=== PATIENT | female | born 1935 | race Two or more races ===

== ENCOUNTER 2016-05-30 02:00 | Emergency (ER) | payer MEDICARE, MEDICAID ==
[~2016-05-30] VITALS: Ht 149.9 cm; Wt 63.5 kg
[~2016-05-30 02:00] MED LIST: AMLO1TAB32 PO; DICL-388 PO; FERR325E14 PO; OMEP40EC1 PO
[2016-05-30 02:05] VITALS: BP 125/57
[2016-05-30] MEDS ORDERED: CLOP75TA55 PO (02:33)
[2016-05-30] MEDS ORDERED: CARV3.12 PO (02:33)
[2016-05-30] MEDS ORDERED: ATOR20TA PO (02:33)
[2016-05-30] MEDS ORDERED: FAMO-90 PO (02:33)
--- NOTE | 2016-05-30 02:35 | NUR ---
PT TAKEN TO BED 4
--- NOTE | 2016-05-30 02:44 | NUR ---
PATIENT PRESENTS TO ED WITH BL ANKLE SWELLING . PT FAMILY STATES SHE WAS RECENTLY DIAGNOSED WITH A. FIB AND CHF X3DAYS AGO AT [facility] . DENIES N/V/D; SKIN IS PINK/WARM/DRY; AAOX4 WITH EVEN AND STEADY GAIT; LUNGS CLEAR BL; HR EVEN AND REGULAR; PT DENIES ANY FEVER, CP, SOB, OR COUGH AT THIS TIME; PATIENT STATES PAIN OF 0/10 AT THIS TIME; VSS; PATIENT POSITIONED FOR COMFORT; HOB ELEVATED; BEDRAILS UP X2; BED DOWN. ER MD MADE AWARE OF PT STATUS. FAMILY AT BEDSIDE
[2016-05-30 03:31] LABS: BASOPHILS # (AUTO) 0.1 K/uL (0.00-0.22); BASOPHILS % (AUTO) 0.8 % (0.0-2.0); EOSINOPHILS # (AUTO) 0.7 K/uL (0-0.4); EOSINOPHILS % (AUTO) 5.9 % (0.0-4.0); HEMATOCRIT 30.5 % (36-48); HEMOGLOBIN 9.5 g/dL (12.0-16.0); LYMPHOCYTES # (AUTO) 1.4 K/uL (2.5-16.5); MEAN CORPUSCULAR HEMOGLOBIN 25 pg (27-31); MEAN CORPUSCULAR HGB CONC 31 g/dL (33-37); MEAN CORPUSCULAR VOLUME 80 fL (80-94); MONOCYTES # (AUTO) 0.8 K/uL (0.8-1.0); MONOCYTES % (AUTO) 6.4 % (1.7-9.3); NEUTROPHILS # (AUTO) 8.9 K/uL (1.8-7.7); NEUTROPHILS % (AUTO) 74.9 % (42.2-75.2); PLATELET COUNT (AUTO) 544 K/uL (140-450); RED BLOOD CELL COUNT(AUTO) 3.83 MIL/uL (4.20-5.40); RED CELL DISTRIBUTION WIDTH 18.2 % (11.6-13.7); WHITE BLOOD COUNT (AUTO) 11.9 K/uL (4.8-10.8)
[2016-05-30 03:40] LABS: ANION GAP 9.5 (8-16); CALCIUM 8.7 mg/dL (8.5-10.1); CHLORIDE 103 mmol/L (98-107); CREATININE 1.1 mg/dL (0.6-1.3); GLUCOSE 90 mg/dL (74-106); POTASSIUM 3.5 mmol/L (3.5-5.1); SODIUM SERUM 137 mmol/L (136-145); UREA NITROGEN, BLOOD 28 mg/dL (7-18)
[2016-05-30 03:46] LABS: ALANINE AMINOTRANSFERASE 25 U/L (12-78); ALBUMIN 2.3 g/dL (3.4-5.0); ALKALINE PHOSPHATASE 63 U/L (46-116); ASPARTATE AMINOTRANSFERASE 18 U/L (15-37); TOTAL BILIRUBIN 0.4 mg/dL (0.0-1.0); TOTAL PROTEIN, SERUM 6.6 g/dL (6.4-8.2)
[2016-05-30 03:54] LABS: CREATINE KINASE MB 0.9 ng/mL (0-3.6)
[2016-05-30 03:55] LABS: INR 1.2 (0.8-1.2)
[2016-05-30] MEDS ORDERED: diphenhydrAMINE 50 MG/ML VIAL IVP ONE (04:05)
--- NOTE | 2016-05-30 04:05 | NUR ---
Pt report given to MCKENZIE BRUNER. Transfer of care at this time.
--- NOTE | 2016-05-30 04:10 | NUR ---
X-Ray at bedside.
--- NOTE | 2016-05-30 04:32 | NUR ---
Ultrasound at bedside.
[2016-05-30 05:24] VITALS: BP 117/68
--- NOTE | 2016-05-30 05:25 | NUR ---
Patient discharged with v/s stable. Written and verbal after care instructions given and explained TO PROCESSING OPERATOR. Patient alert, oriented and verbalized understanding of instructions. Wheel Chair Assisted with by caregiver. All questions addressed prior to discharge. ID band removed. Patient advised to follow up with PMD OR RETURN TO ER IF CONDITION WORSENS. Rx of DIPHENHYDRAMINE given. Patient educated on indication of medication including possible reaction and side effects. Opportunity to ask questions provided and answered.
== END 2016-05-30 05:25 | disposition home or self-care (01) ==
LOC: MED 02:00
DX: R60.0 Localized edema (principal); I10 Essential (primary) hypertension; Z79.899 Other long term (current) drug therapy
CPT/HCPCS: 36415; 71010; 80053; 82550; 82553; 83880; 84484; 85025; 85610; 85730; 93005; 93925; 93970; 96374; 99285; J1200; Q0092

== ENCOUNTER 2017-11-02 17:39 | Inpatient (IN) | payer MEDICAID, MEDICARE ==
[~2017-11-02] VITALS: Ht 157.5 cm; Wt 88.0 kg
[~2017-11-02 17:39] MED LIST changes: +APIX2.5 PO; +ATOR20TA PO; +CARV3.12 PO; +CLIN300C2 PO; +CLOP75TA55 PO; +FAMO-90 PO; +FURO-570 PO; +GUAI-791 PO; +LACT10CA PO; +LEVO0.124 PO; +LEVO500T98 PO; +[UNRECOGNIZED DRUG - CODE] PO
[2017-11-02 17:40] VITALS: BP 140/75
--- NOTE | 2017-11-02 17:45 | NUR ---
82 YEARS OLD BIBA after family called 911 for patient in respiratory distress. gcs 10. Per son, the durable power of personal injury attorney, the hospice nurse administered the morphine and ativan from the comfort kit and the patient desatted. Per ems report, pt o2 sat 60% on scene with cyanotic face. per report pt purse-lipped breathing, rapid, shallow breaths, absent lung sounds bilateral lower lobes with audible rhonchi to bilateral upper lobes. Per report pt hot to the touch, PERRLA intact. Tachy 110 in the field. 20g L AC established in the field. pt satting 100% being manually bagged. hx end-stage CHF. PT EYES OPEN, NONVERBAL, UNABLE TO FOLLOW COMMANDS, LACERATION ON LEFT FACE AND 4 STICHES TO LEFT ELBOW NOTED, PT HAD A FALL RECENTLY PER FAMILY, A-FIB ON PIANO MAKER, SHALOWED BREATHING, DISMINISHED LUNG SOUNDS LINDSEY. NO FEVER, NO COUGHING, INCONTINENT WITH B&B'S, GENERALIZED WEAKNESS TO ALL EXTREMITIES. FLACC 0; VSS; PATIENT POSITIONED FOR COMFORT; HOB ELEVATED; BEDRAILS UP X2; BED DOWN. ER MD MADE AWARE OF PT STATUS.
--- NOTE | 2017-11-02 17:50 | NUR ---
Patient being evaluated by physician at bedside.
[2017-11-02] MEDS ORDERED: cefTRIAXone 1,000 MG VIAL ONE ×2 (18:59→20:12)
[2017-11-02 19:04] LABS: BASOPHILS # (AUTO) 0.1 K/uL (0.00-0.22); BASOPHILS % (AUTO) 0.6 % (0.0-2.0); EOSINOPHILS # (AUTO) 0.2 K/uL (0-0.4); EOSINOPHILS % (AUTO) 1.6 % (0.0-4.0); HEMATOCRIT 31.8 % (36-48); HEMOGLOBIN 9.6 g/dL (12.0-16.0); LYMPHOCYTES # (AUTO) 0.7 K/uL (2.5-16.5); LYMPHOCYTES % (AUTO) 5.2 % (20.5-51.1); MEAN CORPUSCULAR HEMOGLOBIN 23 pg (27-31); MEAN CORPUSCULAR HGB CONC 30 g/dL (33-37); MEAN CORPUSCULAR VOLUME 76.2 fL (80-94); MONOCYTES # (AUTO) 0.9 K/uL (0.8-1.0); MONOCYTES % (AUTO) 6.6 % (1.7-9.3); NEUTROPHILS # (AUTO) 11.7 K/uL (1.8-7.7); PLATELET COUNT (AUTO) 273 K/uL (140-450); RED BLOOD CELL COUNT(AUTO) 4.17 MIL/uL (4.20-5.40); RED CELL DISTRIBUTION WIDTH 18.5 % (11.6-13.7); WHITE BLOOD COUNT (AUTO) 13.6 K/uL (4.8-10.8)
[2017-11-02 19:14] LABS: CHLORIDE 108 mmol/L (98-107); CREATININE 1.1 mg/dL (0.6-1.3); GLUCOSE 236 mg/dL (74-106); SODIUM SERUM 140 mmol/L (136-145); UREA NITROGEN, BLOOD 19 mg/dL (7-18)
--- NOTE | 2017-11-02 19:15 | NUR ---
PT RESTING IN BED, VITALS STABLE. FAMILY AT BEDSIDE.
--- NOTE | 2017-11-02 19:23 | NUR ---
REPORT GIVEN TO UNIT ASSEMBLER NURSE FOR CONTINUE OF CARE.
[2017-11-02 19:29] LABS: ASPARTATE AMINOTRANSFERASE 31 U/L (15-37); TOTAL BILIRUBIN 0.4 mg/dL (0.0-1.0)
[2017-11-02 19:32] LABS: APPEARANCE,URINE SL CLOUDY (CLEAR); BILIRUBIN,URINE NEGATIVE (NEGATIVE); BLOOD, URINE 3+ (NEGATIVE); COLOR,URINE YELLOW (YELLOW); LEUKOCYTE ESTERASE ,URINE NEGATIVE (NEGATIVE); NITRITE, URINE NEGATIVE (NEGATIVE); UGLUCOSE 1+ (NEGATIVE)
--- NOTE | 2017-11-02 19:42 | NUR ---
Dr. Saldana evaluating patient at bedside.
[2017-11-02 19:44] LABS: RBC,URINE 20-50 /HPF (0-5)
[2017-11-02 19:45] LABS: COARSE GRANULAR CASTS,URINE 0-10 /LPF (None Seen)
[2017-11-02] MEDS ORDERED: AZITHROMYCIN 500 MG in DEXTROSE 5% 250 ML IV ONE (19:50)
--- NOTE | 2017-11-02 20:02 | NUR ---
Dr. Ghotra evaluating patient at bedside.
--- NOTE | 2017-11-02 20:05 | NUR ---
pt vitals stable, family at bedside, waiting admit
[2017-11-02] MEDS ORDERED: AZITHROMYCIN 500 MG INJ VIAL IV ONE (20:13)
[2017-11-02] MEDS ORDERED: ACETAMINOPHEN 325 MG TAB PO PRN (20:25)
[2017-11-02] MEDS ORDERED: HYDROcodone/APAP 7.5/325 MG 1 TAB PO PRN (20:25)
[2017-11-02] MEDS ORDERED: ONDANSETRON 4 MG/2 ML VIAL IVP PRN (20:25)
[2017-11-02] MEDS ORDERED: ALBUTEROL SULFATE/IPRATROPIU 3 ML SOL IH PRN (20:40)
[2017-11-02] MEDS ORDERED: SENN-72 PO (20:40)
[2017-11-02] MEDS ORDERED: POTA10TE30 PO (20:40)
--- NOTE | 2017-11-02 20:45 | NUR ---
Patient will be admitted to care of Dr. Gallegos. Admited to telemetry. Will go to room 107B. Belongings list completed. Report to ELIDA RINCON. PT VITALS STABLE
--- NOTE | 2017-11-02 20:50 | NUR ---
Pt report given to ELIDA RINCONSUPERVISOR CONDITIONING YARD. Transfer of care at this time. PT VITALS STABLE UPON TRANSFER. FAMILY AT BEDSIDE
[2017-11-02] MEDS: DOCUSATE SODIUM 100 MG GELCAP PO SCH (21:00)
--- NOTE | 2017-11-02 21:05 | NUR ---
PT CAME FROM ER VIA GURNEY ACCOMPANIED BY INTERLACER, RT, AND VAMP PRESSER. RECEIVED REPORT FROM VAMP PRESSER FOR CONTINUITY OF CARE. PT IS ON BIPAP. UNABLE TO FOLLOW COMMANDS. PT HAS STITCHES AND BRUISING TO LEFT EYE, PT FELL LAST WEEK. PT ALSO HAS BRUISING TO BILATERAL UPPER EXTREMITIES. PT HAS 20G IV TO LEFT AC, ASYMPTOMATIC, INTACT AND PATENT. DISCUSSED PLAN OF CARE WITH PT FAMILY, FAMILY VERBALIZED UNDERSTANDING. OBTAINED MRSA SWAB AND SENT TO LAB, VITAL SIGNS WITHIN NORMAL LIMITS. PT STABLE, NO SIGNS OF DISTRESS NOTED AT THIS TIME. BED IN LOWEST POSITION, BED ALARM ON. CALL LIGHT WITHIN REACH, WILL CONTINUE TO MONITOR.
--- NOTE | 2017-11-02 21:06 | NUR ---
2100 TRANSPORTED PATIENT TO 107B WEARING BIPAP MASK. NO INCIDENTS OCCURRED
[2017-11-02] MEDS ORDERED: DEXTROSE 50% 50 ML SYR IVP PRN (21:10)
[2017-11-02] MEDS ORDERED: INSULIN LISPRO SLIDING SCALE 100 UNITS/ML VIAL SUBQ PRN (21:10)
[2017-11-02 21:30] VITALS: BP 108/56
[2017-11-02 21:36] LABS: FREE T4 (FREE THYROXINE) 1.35 ng/dL (0.76-1.46); MAGNESIUM 2.1 mg/dL (1.8-2.4); PHOSPHORUS 4.6 mg/dL (2.5-4.9); THYROID STIMULATING HORMONE 1.47 uIU/mL (0.34-3.74)
[2017-11-02] MEDS ORDERED: PIPER/TAZO 2.25GM/D5W PREMIX 50 ML IV SCH (22:00)
[2017-11-02] MEDS ORDERED: PIPERACILLIN/TAZOBACTAM 2.25 GM VIAL IV ONE (22:25)
[2017-11-02] MEDS: NACL 0.9% 1,000 ML IV SCH (22:30)
[2017-11-03] VITALS: BP 112/64
--- NOTE | 2017-11-03 | NUR ---
VITAL SIGNS WITHIN NORMAL LIMITS. PT STABLE, NO SIGNS OF DISTRESS NOTED AT THIS TIME. BED IN LOWEST POSITION, BED ALARM ON. CALL LIGHT WITHIN REACH, WILL CONTINUE TO MONITOR.
--- NOTE | 2017-11-03 01:22 | NUR ---
0110 PATIENT TOOK MASK OFF HER FACE. PT SEEMED AGITATED WITH IT ON. PLACED PATIENT ON 2LNC. SATS 95%. NO SOB NOTED. WILL GIVE PATIENT A BREAK. IF PT BECOMES SOB WILL PUT BIPAP BACK ON. FAMILY AT BEDSIDE
--- NOTE | 2017-11-03 02:24 | NUR ---
PT STABLE, NO SIGNS OF DISTRESS NOTED AT THIS TIME. BED IN LOWEST POSITION, BED ALARM ON. CALL LIGHT WITHIN REACH, WILL CONTINUE TO MONITOR.
--- NOTE | 2017-11-03 03:07 | NUR ---
CHECKED ON PATIENT AT THIS TIME. PT SHOWS NO SOB. PATIENTS SATS ON 2LNC IS 98%. PT IS RESTING COMFORTABLY/ DAUGHTER AT BEDSIDE
[2017-11-03 04:00] VITALS: BP 106/63
[2017-11-03] MEDS: ALBUTEROL SULFATE/IPRATROPIU 3 ML SOL IH SCH ×3 (05:15→18:57)
[2017-11-03] MEDS ORDERED: PIPERACILLIN/TAZOBACTAM 2.25 GM VIAL IV ONE (05:29)
[2017-11-03] MEDS: PIPER/TAZO 2.25GM/D5W PREMIX 50 ML IV SCH ×3 (05:32→18:31)
--- NOTE | 2017-11-03 05:32 | NUR ---
CALLED RT BECAUSE PT IS COUGHING AND SEEMS SOB. RALES ARE HEARD THROUGHOUT LUNGS.
--- NOTE | 2017-11-03 05:48 | NUR ---
PLACED PATIENT BACK ON BIPAP. PT HAD SOB. SXNED LG AMTS OF THICK YELLOW BLOODY SECRETIONS
[2017-11-03] MEDS: BLOOD GLUCOSE MONITORING 1 DEV DEV FS SCH ×4 (06:06→21:15)
--- NOTE | 2017-11-03 06:11 | NUR ---
PATIENT HAS BEEN SCREENED AND CATEGORIZED HIGH NUTRITION RISK. PATIENT WILL BE SEEN WITHIN 1-2 DAYS OF ADMISSION. 11/03/17-11/04/17 LUCRETIA JAY MS, RDN
[2017-11-03] MEDS ORDERED: LEVOTHYROXINE 0.025 MG TAB PO SCH (06:30)
[2017-11-03 06:59] LABS: BASOPHILS % (AUTO) 0.4 % (0.0-2.0); EOSINOPHILS # (AUTO) 0.2 K/uL (0-0.4); EOSINOPHILS % (AUTO) 1.7 % (0.0-4.0); HEMATOCRIT 30.7 % (36-48); HEMOGLOBIN 9.6 g/dL (12.0-16.0); LYMPHOCYTES # (AUTO) 2.2 K/uL (2.5-16.5); LYMPHOCYTES % (AUTO) 20.2 % (20.5-51.1); MEAN CORPUSCULAR HEMOGLOBIN 24 pg (27-31); MEAN CORPUSCULAR HGB CONC 31 g/dL (33-37); MEAN CORPUSCULAR VOLUME 75.7 fL (80-94); MONOCYTES # (AUTO) 1.3 K/uL (0.8-1.0); MONOCYTES % (AUTO) 11.7 % (1.7-9.3); NEUTROPHILS # (AUTO) 7.1 K/uL (1.8-7.7); PLATELET COUNT (AUTO) 269 K/uL (140-450); RED BLOOD CELL COUNT(AUTO) 4.06 MIL/uL (4.20-5.40); RED CELL DISTRIBUTION WIDTH 18.4 % (11.6-13.7); WHITE BLOOD COUNT (AUTO) 10.7 K/uL (4.8-10.8)
[2017-11-03] MEDS ORDERED: FUROSEMIDE 40 MG/4 ML VIAL IVP SCH (07:10)
[2017-11-03] MEDS: BUDESONIDE 0.5 MG/2 ML NEBU INH SCH ×2 (07:15→18:57)
--- NOTE | 2017-11-03 07:29 | NUR ---
RECEIVED PT ON BIPAP /, R12 FIO2 40%. PT TOLERATING SETTINGS WELL AT THIS TIME. PROTECTA GEL PLACED UNDER MASK FOR SKIN PROTECTION. BIPAP ALARMS ON AND FUNCTIONING. FAMILY MEMBER BEDSIDE. WILL CONTINUE TO MONITOR.
--- NOTE | 2017-11-03 07:30 | NUR ---
RECEIVED PT ON BED AAOX1, CONFUSED. NO SOB NOTED, ON 4 LITERS NASAL CANNULA WITH O2 SATURATIONS OF 99%. NO C/O PAIN AT THIS TIME. IV TO LT AC PATENT AND INTACT. CHEST DIMINISHED AIR ENTRY TO THE BASES, RALES HEARD ALL OVER. ABDOMEN SOFT, BOWEL SOUNDS PRESENT. DAUGHTER ABDON AT THE BEDSIDE, INSTRUCTED TO CALL FOR ASSISTANCE, CALL LIGHT WITHIN REACH, VERBALIZED UNDERSTANDING.
--- NOTE | 2017-11-03 07:37 | NUR ---
ENDORSED PT TO DAY SHIFT RN FOR CONTINUITY OF CARE. PT IN STABLE CONDITION.
--- NOTE | 2017-11-03 07:44 | NUR ---
PT TAKEN OFF OF BIPAP AT THIS TIME TO EAT BY REQUEST OF THE FAMILY. PT PLACED ON 4L NC SPO2 98%. FAMILY MEMBER BEDSIDE.WILL CONTINUE TO MONITOR.
[2017-11-03 07:46] LABS: ANION GAP 10.6 (8-16); CARBON DIOXIDE 28.8 mmol/L (21-32); CHLORIDE 108 mmol/L (98-107); CREATININE 0.9 mg/dL (0.6-1.3); GLUCOSE 87 mg/dL (74-106); POTASSIUM 4.4 mmol/L (3.5-5.1); SODIUM SERUM 143 mmol/L (136-145); UREA NITROGEN, BLOOD 17 mg/dL (7-18)
[2017-11-03 07:58] LABS: CHOL/HDL RATIO 2.5 (1-4.5)
[2017-11-03 08:00] VITALS: BP 106/71
[2017-11-03 08:28] LABS: PHOSPHORUS 3.1 mg/dL (2.5-4.9)
[2017-11-03] MEDS ORDERED: APIXABAN 2.5 MG TAB PO SCH (09:00)
[2017-11-03] MEDS ORDERED: ASPIRIN 81 MG TAB.CHEW PO SCH (09:00)
[2017-11-03] MEDS: FUROSEMIDE 40 MG TAB PO SCH (09:00)
--- NOTE | 2017-11-03 09:00 | NUR ---
11/03/17 RD INITIAL ASSESSMENT COMPLETED PLEASE REFER TO NUTRITION ASSESSMENT UNDER CARE ACTIVITY FOR ESTIMATED NUTRITIONAL NEEDS. RD RECOMMENDATIONS: 1. RECOMMEND D/C CCHO 60 GM DIET AND STARTING REGULAR DIET. 2. CONSULT RDN PRN. 3. RD WILL F/U 7 DAYS; LOW RISK. LUCRETIA JAY MS, RDN
[2017-11-03] MEDS: ATORVASTATIN 20 MG TAB PO SCH (09:08)
[2017-11-03] MEDS: LACTOBACILLUS RHAMNOSUS GG 1 EACH CAP PO SCH (09:08)
[2017-11-03] MEDS: DOCUSATE SODIUM 100 MG GELCAP PO SCH ×2 (09:08→21:14)
[2017-11-03] MEDS: CARVEDILOL 3.125 MG TAB PO SCH ×2 (09:09→17:00)
[2017-11-03] MEDS: SENNA 8.6 MG TAB PO SCH ×2 (09:09→21:14)
[2017-11-03] MEDS: guaiFENesin 600 MG TABER PO SCH ×2 (09:10→21:14)
[2017-11-03 12:00] VITALS: BP 119/60
--- NOTE | 2017-11-03 13:15 | NUR ---
FAMILY AT THE BEDSIDE VISITING PT.
--- NOTE | 2017-11-03 15:00 | NUR ---
PT SITTING AT THE SIDE OF THE BED WITH SON AND OTHER FAMILY MEMBERS AT THE BEDSIDE. NO SOB NOTED. NO COMPLAINTS MADE.
[2017-11-03 16:00] VITALS: BP 102/45
--- NOTE | 2017-11-03 16:30 | NUR ---
AUTOMOBILE CONTRACT CLERK WAS CLEANING PT AND DISCOVERED A FRESH SKIN TEAR ON PT'S RT FOREARM. NOTED EKG LEAD WAS STILL HANGING ON THE SKIN THAT WAS PEELED OFF ON PT'S FOREARM. AREA CLEANSED WITH NORMAL SALINE, PAT DRIED WITH STERILE GAUZE, PHOTOGRAPH TAKEN AND DOCUMENTED. SKIN TEAR COVERED WITH TEGADERM. WILL CONTINUE TO MONITOR PT'S BEHAVIOR. MITTENS APPLIED TO PT'S LEFT HAND.
--- NOTE | 2017-11-03 17:05 | NUR ---
PT NASOTRACHEAL SUCTIONED THROUGH R NOSTRIL OBTAINED MODERATE AMOUNT OF THICK BLOODY SECRETIONS, PT TOLERATED PROCEDURE WELL WITH NO ADVERSE REACTIONS NOTED. MULE PACKER PETER BEDSIDE FOR PROCEDURE. PT PLACED BACK ON NASAL CANNULA AFTERWARDS WITH NO RESPIRATORY DISTRESS NOTED.
--- NOTE | 2017-11-03 18:30 | NUR ---
PT'S DAUGHTER ABDON CAME TO STAY FOR THE NIGHT. LEFT HAND MITTEN REMOVED.
[2017-11-03] MEDS: NACL 0.9% 1,000 ML IV SCH (18:31)
--- NOTE | 2017-11-03 19:04 | NUR ---
PT RESTING. NO SOB NOTED, ON MODERATE HIGH BACK REST. DAUGHTER AT THE BEDSIDE. WILL ENDORSE TO NEXT SHIFT NURSE FOR CONTINUITY OF CARE.
--- NOTE | 2017-11-03 19:05 | NUR ---
RECEIVED REPORT FROM DAY SHIFT RN FOR CONTINUITY OF CARE. PT IS ON 2L O2 VIA NASAL CANNULA. PT HAS STITCHES AND BRUISING TO LEFT EYE, PT FELL LAST WEEK. PT ALSO HAS BRUISING TO BILATERAL UPPER EXTREMITIES. PT HAS 20G IV TO LEFT AC, ASYMPTOMATIC, INTACT AND PATENT. DISCUSSED PLAN OF CARE WITH PT FAMILY, FAMILY VERBALIZED UNDERSTANDING. OBTAINED MRSA SWAB AND SENT TO LAB, VITAL SIGNS WITHIN NORMAL LIMITS. PT STABLE, NO SIGNS OF DISTRESS NOTED AT THIS TIME. BED IN LOWEST POSITION, BED ALARM ON. CALL LIGHT WITHIN REACH, WILL CONTINUE TO MONITOR.
[2017-11-03 20:00] VITALS: BP 120/70
--- NOTE | 2017-11-03 20:12 | NUR ---
1954 PATIENT BECAME SHORT OF BREATH. SXNED PT RECEIVING BLOODY SECRETIONS. PT HAS A STRONG COUGH BUT HAS TROUBLE BRINGING UP HER PHLEGM. PLACED PATIENT BACK ON BIPAP TO CATCH HER BREATH. DAUGHTER AT BEDSIDE. HHNTX GIVEN.DECREASED THE IPAP PRESSURE TO 10CM
--- NOTE | 2017-11-03 21:15 | NUR ---
ADMINISTERED SCHEDULED MEDICATIONS, PT TOLERATED WELL. WILL REASSESS BLOOD PRESSURE. Addendum: 11/03/17 at 2116 by Sandra Connell RN DISREGARD, WRONG NOTE.
--- NOTE | 2017-11-03 21:16 | NUR ---
ADMINISTERED SCHEDULED MEDICATIONS, PT TOLERATED WELL.
[2017-11-04] VITALS (7 sets, daily range): BP systolic 99–121; BP diastolic 45–67
[2017-11-04] MEDS: PIPER/TAZO 2.25GM/D5W PREMIX 50 ML IV SCH ×4 (00:38→17:40)
--- NOTE | 2017-11-04 03:42 | NUR ---
Patient was taken off BIPAP and placed on 4L NC spo2 100 heart rate 85 patient stable no resp distress noticed no shortness of breath noticed. RT will closely monitor patient.
--- NOTE | 2017-11-04 03:59 | NUR ---
ENDORSED PT TO KARMEN RINCON FOR CONTINUITY OF CARE. PT STABLE.
--- NOTE | 2017-11-04 04:00 | NUR ---
RECEIVED PATIENT RESTING ON BED WITH FAMILY MEMBER AT BEDSIDE. NC 4L [address] FALL PRECAUTION APPLIED. WILL CONTINUE TO MONITOR.
[2017-11-04] MEDS: LEVOTHYROXINE 0.025 MG TAB PO SCH (06:30)
[2017-11-04] MEDS: BLOOD GLUCOSE MONITORING 1 DEV DEV FS SCH (06:57)
[2017-11-04] MEDS: BUDESONIDE 0.5 MG/2 ML NEBU INH SCH ×2 (07:15→19:30)
[2017-11-04] MEDS: ALBUTEROL SULFATE/IPRATROPIU 3 ML SOL IH SCH ×3 (07:15→18:00)
--- NOTE | 2017-11-04 07:20 | NUR ---
GAVE REPORT TO AM SHIFT NURSE AT BEDSIDE FOR CONTINUITY OF CARE. PATIENT IN STABLE CONDITION.
--- NOTE | 2017-11-04 07:22 | NUR ---
RECEIVED BEDSIDE REPORT FROM PEDIATRIC CNS NURSE. PATIENT IS ALERT AND ORIENTEDX1. CURRENTLY ON BIPAP. NO SIGNS OF DISTRESS. RT AT BEDSIDE. SHE IS BEDBOUND. R ARM LACERATION. TELE MONITOR IN PLACE. L AC 20G INFUSING NS AT 50. CLEAN, DRY AND INTACT. FALL PRECAUTIONS IN PLACE. PATIENT IS INCONTINENT. FAMILY AT BEDSIDE. WILL CONTINUE TO MONITOR THE PATIENT.
--- NOTE | 2017-11-04 07:24 | NUR ---
RECEIVED PT ON BIPAP SETTINGS 12/14 R 12 FIO2 40%. SETTINGS INCREASED TO / DUE TO INADEQUATE EXP VT. PT REMAINS ON BIPAP AT THIS TIME 02/13, R12, FIO2 40%. FAMILY MEMBER IS BEDSIDE. BIPAP ALARMS ARE ON AND FUNCTIONING. WILL CONTINUE TO MONITOR. Addendum: 11/04/17 at 0817 by Rj Kim RT PROTECTA -GEL IS PLACED UNDER MASK, SKIN IS INTACT PT HAS SLIGHT REDNESS ON BRIDGE OF NOSE.
[2017-11-04 07:42] LABS: BASOPHILS % (AUTO) 0.6 % (0.0-2.0); EOSINOPHILS # (AUTO) 0.3 K/uL (0-0.4); EOSINOPHILS % (AUTO) 3.5 % (0.0-4.0); HEMATOCRIT 28.5 % (36-48); HEMOGLOBIN 9.1 g/dL (12.0-16.0); LYMPHOCYTES # (AUTO) 1.6 K/uL (2.5-16.5); LYMPHOCYTES % (AUTO) 20.1 % (20.5-51.1); MEAN CORPUSCULAR HEMOGLOBIN 24 pg (27-31); MEAN CORPUSCULAR HGB CONC 32 g/dL (33-37); MONOCYTES # (AUTO) 0.8 K/uL (0.8-1.0); MONOCYTES % (AUTO) 10.6 % (1.7-9.3); NEUTROPHILS # (AUTO) 5.2 K/uL (1.8-7.7); NEUTROPHILS % (AUTO) 65.2 % (42.2-75.2); PLATELET COUNT (AUTO) 248 K/uL (140-450); RED CELL DISTRIBUTION WIDTH 17.8 % (11.6-13.7)
[2017-11-04] MEDS: CARVEDILOL 3.125 MG TAB PO SCH ×2 (08:00→16:11)
[2017-11-04 08:12] LABS: ANION GAP 9.4 (8-16); CARBON DIOXIDE 28.6 mmol/L (21-32); CHLORIDE 106 mmol/L (98-107); CREATININE 0.9 mg/dL (0.6-1.3); GLUCOSE 97 mg/dL (74-106); SODIUM SERUM 141 mmol/L (136-145); UREA NITROGEN, BLOOD 15 mg/dL (7-18)
--- NOTE | 2017-11-04 08:18 | NUR ---
PT TAKEN OFF OF BIPAP TO EAT, FAMILY MEMBER IS BEDSIDE. PT PLACED ON 4L NASAL CANNULA. PT NOT IN RESPIRATORY DISTRESS AT THIS TIME. WILL CONTINUE TO MONITOR.
[2017-11-04] MEDS: SENNA 8.6 MG TAB PO SCH ×2 (08:21→20:33)
[2017-11-04] MEDS: LACTOBACILLUS RHAMNOSUS GG 1 EACH CAP PO SCH (08:21)
[2017-11-04] MEDS: FUROSEMIDE 40 MG TAB PO SCH (08:22)
[2017-11-04] MEDS: ATORVASTATIN 20 MG TAB PO SCH (08:22)
[2017-11-04] MEDS: guaiFENesin 600 MG TABER PO SCH ×2 (08:22→20:33)
[2017-11-04] MEDS: DOCUSATE SODIUM 100 MG GELCAP PO SCH ×2 (08:22→20:33)
--- NOTE | 2017-11-04 08:26 | NUR ---
RT PLACED PATIENT ON 4L NC. PATIENT TOLERATING WELL. SHE IS EATING NOW. CRUSHED AND ADMINISTERED MEDS. PATIENT TOLERATED WELL. WILL CONTINUE TO MONITOR THE PATIENT.
[2017-11-04] MEDS ORDERED: ASCORBIC ACID 500 MG TAB PO SCH (09:00)
[2017-11-04] MEDS ORDERED: FERROUS GLUCONATE 324 MG TAB PO SCH (09:00)
[2017-11-04] MEDS ORDERED: POTASSIUM CHLORIDE 40 MEQ, LIDOCAINE 2% 25 MG in NACL 0.9% 250 ML IV SCH (09:15)
--- NOTE | 2017-11-04 09:20 | NUR ---
PT NASOTRACHEAL SUCTIONED THROUGH L NOSTRIL PT SUCTIONED OBTAINED LARGE AMOUNT OF THICK YELLOW SECRETIONS. PT TOLERATED WELL WITHOUT INCIDENT.
--- NOTE | 2017-11-04 09:27 | NUR ---
PT PLACED BACK ON BIPAP FOR SOB. BIPAP ALARMS ON AND FUNCTIONING. WILL CONTINUE TO MONITOR.
--- NOTE | 2017-11-04 09:30 | NUR ---
PATIENT ATE BREAKFAST. GURGLING NOTED. S/SX OF DISTRESS, RT CAME HE SUCTIONED PATIENT ORALLY AND NASAL. PATIENT TOLERATED WELL. O2SAT WENT BACK UP, PATIENT BACK ON BIPAP
--- NOTE | 2017-11-04 10:36 | NUR ---
ADMINISTERED POTASSIUM. PATIENT TOLERATED WELL. IV IS CLEAN, DRY AND INTACT. WILL CONTINUE TO MONITOR. FAMILY AT BEDSIDE.
--- NOTE | 2017-11-04 11:01 | NUR ---
PATIENT IS SLEEPING. NO SIGNS OF DISTRESS ON BIPAP. FAMILY AT BEDSIDE. WILL CONTINUE TO MONITOR
[2017-11-04 11:07] LABS: MAGNESIUM 1.8 mg/dL (1.8-2.4); PHOSPHORUS 3.1 mg/dL (2.5-4.9)
--- NOTE | 2017-11-04 11:13 | NUR ---
PT REMAINS ON SAME BIPAP SETTINGS NO CHANGES MADE. FAMILY IS BEDSIDE. PT TOLERATING BIPAP WELL AT THIS TIME. WILL CONTINUE TO MONITOR.
[2017-11-04] MEDS: NACL 0.9% 1,000 ML IV SCH (12:24)
--- NOTE | 2017-11-04 13:00 | NUR ---
PATIENT IS SLEEPING. NO SIGNS OF DISTRESS. FAMILY AT BEDSIDE. WILL CONTINUE TO MONITOR
--- NOTE | 2017-11-04 13:54 | NUR ---
FOUND PT NOT ON BIPAP AT THIS TIME. PT ON 4L NC. SPO2 98%. PT NOT SOB AND NOT IN RESPIRATORY DISTRESS.
--- NOTE | 2017-11-04 14:57 | NUR ---
PATIENT IS SLEEPING. NO SIGNS OF DISTRESS ON 4L NC. BED IN LOW POSITION. FAMILY AT BEDSIDE
--- NOTE | 2017-11-04 16:39 | NUR ---
PATIENT IS SLEEPING. NO SIGNS OF DISTRESS ON 4L NC. BED IN LOW POSITION. CALL LIGHT WITHIN REACH. FAMILY AT BEDSIDE. WILL CONTINUE TO MONITOR
[2017-11-04] MEDS ORDERED: NACL 0.9% 250 ML IV ONE (17:10)
--- NOTE | 2017-11-04 17:41 | NUR ---
PATIENT IS AWAKE. NO SIGNS OF DISTRESS ON 4L NC. FAMILY AT BEDSIDE REQUESTING B/P CHECKS QHR. WILL KEEP VITAL MACHINE AT BEDSIDE.
--- NOTE | 2017-11-04 18:33 | NUR ---
PATIENT STABLE ON 4L NC SP02 99 HEART RATE 72 PATIENT IS STABLE ALERT BS-RHONCHI. NO SHORTNESS OF BREATH OR RESP DISTRESS NOTICED. RT WILL MONITOR PATIENT CLOSELY.
--- NOTE | 2017-11-04 19:17 | NUR ---
GAVE BEDSIDE REPORT TO EDUCATION RN NURSE. PATIENT ENDORSED IN STABLE CONDITION
--- NOTE | 2017-11-04 19:19 | NUR ---
RECEIVED REPORT FROM NIGHT RN. PT RESTING IN BED. AAOX1, NO S/S OF ACUTE DISTRESS. FLACC-0. IV PULLED OUT BY PT, TIP INTACT. NEW IV STARTED. CALL LIGHT WITHIN REACH. FAMILY AT BEDSIDE. ON O2 4L NC. SAFETY MEASURES ENSURED. WILL CONTINUE TO MONITOR.
--- NOTE | 2017-11-04 19:46 | NUR ---
FAMILY REFUSED TX , SECOND TIME, BECAUSE PT SLEEPING GOOD, THEY WILL CALL IF NEEDED.
--- NOTE | 2017-11-04 21:47 | NUR ---
PT SLEEPING IN BED. NO S/S OF ACUTE DISTRESS. WILL CONTINUE TO MONITOR.
--- NOTE | 2017-11-04 23:23 | NUR ---
PT RESTING IN BED. NO S/S OF ACUTE DISTRESS. FAMILY AT BEDSIDE. WILL CONTINUE TO MONITOR.
[2017-11-05] MEDS: PIPER/TAZO 2.25GM/D5W PREMIX 50 ML IV SCH ×3 (00:32→14:31)
--- NOTE | 2017-11-05 01:39 | NUR ---
PT'S HEART RATE GOES DOWN TO 39. DR. CHE MADE AWARE.
[2017-11-05 04:00] VITALS: BP 108/70
--- NOTE | 2017-11-05 04:48 | NUR ---
PT SLEEPING IN BED. WILL CONTINUE TO MONITOR.
[2017-11-05] MEDS: LEVOTHYROXINE 0.025 MG TAB PO SCH (05:34)
[2017-11-05 05:56] LABS: BASOPHILS # (AUTO) 0.1 K/uL (0.00-0.22); BASOPHILS % (AUTO) 0.6 % (0.0-2.0); EOSINOPHILS # (AUTO) 0.3 K/uL (0-0.4); EOSINOPHILS % (AUTO) 2.8 % (0.0-4.0); HEMOGLOBIN 8.3 g/dL (12.0-16.0); LYMPHOCYTES # (AUTO) 1.7 K/uL (2.5-16.5); LYMPHOCYTES % (AUTO) 19.5 % (20.5-51.1); MEAN CORPUSCULAR HEMOGLOBIN 24 pg (27-31); MEAN CORPUSCULAR HGB CONC 32 g/dL (33-37); MEAN CORPUSCULAR VOLUME 74.4 fL (80-94); MONOCYTES % (AUTO) 11.5 % (1.7-9.3); NEUTROPHILS # (AUTO) 5.9 K/uL (1.8-7.7); NEUTROPHILS % (AUTO) 65.6 % (42.2-75.2); PLATELET COUNT (AUTO) 252 K/uL (140-450); RED CELL DISTRIBUTION WIDTH 17.9 % (11.6-13.7); WHITE BLOOD COUNT (AUTO) 8.9 K/uL (4.8-10.8)
[2017-11-05 06:14] LABS: CARBON DIOXIDE 32.4 mmol/L (21-32); CHLORIDE 108 mmol/L (98-107); CREATININE 0.8 mg/dL (0.6-1.3); GLUCOSE 90 mg/dL (74-106); POTASSIUM 3.4 mmol/L (3.5-5.1); SODIUM SERUM 142 mmol/L (136-145); UREA NITROGEN, BLOOD 18 mg/dL (7-18)
--- NOTE | 2017-11-05 07:20 | NUR ---
RECEIVED REPORT FROM ANALYSIS EVALUATOR NURSE AT BEDSIDE FOR CONTINUITY OF CARE. PT RESTING IN BED, SLEEPING, DAUGHTER ABDON AT BEDSIDE. PATIENT IS [place] SPEAKING ONLY. PATIENT ON O2 4L NC, NO SIGNS OF DISTRESS OR SOB NOTED. AAOX1, NO S/S OF ACUTE DISTRESS. FLACC-0. IV TO L AC 22 G, INFUSING NS @ 20 ML/HR WELL. PER ANALYSIS EVALUATOR RN MELISSA, PATIENT IS AFIB BUT HR GOES DOWN LOW 32 BPM. UPDATED BOARD, VERBALIZED PLAN OF CARE TO ABDON, SHE VERBALIZED UNDERSTANDING. SAFETY PRECAUTION IN PLACE, CALL LIGHT WITHIN REACH. FAMILY AT BEDSIDE. SAFETY MEASURES ENSURED. WILL CONTINUE TO MONITOR PATIENT.
[2017-11-05] MEDS: ALBUTEROL SULFATE/IPRATROPIU 3 ML SOL IH SCH (07:23)
[2017-11-05] MEDS: BUDESONIDE 0.5 MG/2 ML NEBU INH SCH (07:24)
--- NOTE | 2017-11-05 07:29 | NUR ---
PT DAUGHTER REFUSED HHN TX BECAUSE PT IS ASLEEP. NO DISTRESS NOTED. PT IS SLEEPING COMFORTABLY. BIPAP STANDBY AT BEDSIDE. PT ON 4 L NC WITH HUMIDIFIER. DAUGHTER AT BEDSIDE. WILL CONTINUE TO MONITOR.
--- NOTE | 2017-11-05 07:41 | NUR ---
DOCTORS MAKING THEIR ROUNDS, PATIENT'S DAUGHTER ABDON AT BEDSIDE TO SPEAK WITH THEM. WILL WAIT FOR THE DOCTOR'S ORDERS.
[2017-11-05 08:00] VITALS: BP 147/81
[2017-11-05] MEDS ORDERED: FERROUS GLUCONATE 324 MG TAB PO SCH (08:00)
[2017-11-05] MEDS ORDERED: ACETAMINOPHEN 650 MG/20.3 ML UDC PO PRN (08:33)
[2017-11-05] MEDS ORDERED: DOCUSATE 100 MG/10 ML UDC PO SCH (08:34)
[2017-11-05] MEDS ORDERED: ASCORBIC ACID 500 MG/5 ML ORASYR PO SCH (08:34)
[2017-11-05] MEDS ORDERED: guaiFENesin 20 MG/ML UDC PO SCH (08:36)
[2017-11-05] MEDS ORDERED: KCL 20 MEQ/WATER INJ PREMIX 100 ML IV SCH (08:40)
--- NOTE | 2017-11-05 08:49 | NUR ---
ORDERED MEDICATIONS GIVEN. MEDICATIONS CRUSHED AND GIVEN WITH PUREED PEARS. PATIENT TOLERATED THEM WELL. DAUGHTER ABDON AT BEDSIDE. PATIENT O2 SATURATION 99-100% ON 4L O2 VIA NC. RT PHILL IN TO SEE THE PATIENT. DISCUSSED PATIENT'S O2 SATURATION. PATIENT NOW BEING LOWERED TO 3L O2 VIA NC. WILL CONTINUE TO MONITOR PATIENT. SAFETY PRECAUTION IN PLACE, CALL LIGHT WITHIN REACH, WILL CONTINUE TO MONITOR PATIENT.
[2017-11-05] MEDS: ATORVASTATIN 20 MG TAB PO SCH (08:52)
[2017-11-05] MEDS: SENNA 8.6 MG TAB PO SCH (08:52)
[2017-11-05] MEDS: LACTOBACILLUS RHAMNOSUS GG 1 EACH CAP PO SCH (08:52)
[2017-11-05] MEDS: FUROSEMIDE 40 MG TAB PO SCH (08:53)
--- NOTE | 2017-11-05 09:10 | NUR ---
SPOKE WITH ANDREW FROM [facility] [phone] FAXED ER REPORT, H&P, CONSULT, PROGRESS NOTES AND DISCHARGE SUMMARY TO [facility] [phone]
--- NOTE | 2017-11-05 09:30 | NUR ---
RECEIVED ORDER FOR KARLO COLLIER. I CALLED DOMO FROM [facility]. [phone]. SHE SAID TO FAX ORDER, FACE SHEET AND MED LIST TO [facility] AT [phone], WHICH I DID. DOMO SAID SHE WOULD GET SOMEONE FROM [facility] TO SEE PATIENT AND SPEAK WITH FAMILY. SHE SAID THAT THIS PATIENT IS ON THEIR SERVICE.
--- NOTE | 2017-11-05 09:40 | NUR ---
PATIENT'S O2 SATURATION 98-99% ON 3L O2 VIA NC. RT RANDAL IN TO SEE PATIENT. PATIENT'S O2 NOW DECREASED TO 2L O2 VIA NC. PATIENT'S RESPIRATIONS ARE EVEN AND UNLABORED. NO SIGNS OF DISTRESS OR SOB NOTED. WILL CONTINUE TO MONITOR PATIENT.
[2017-11-05] MEDS ORDERED: FUROSEMIDE 40 MG/5 ML ORAL SOL UDC PO SCH (11:02)
--- NOTE | 2017-11-05 11:02 | NUR ---
PATIENT PULLED OUT HER IV. IV CATHETER INTACT, MINIMAL BLEEDING NOTED. SON DIANN AND DAUGHTER ABDON AT BEDSIDE. CURRENTLY WAITING FOR [facility] TO COME AND ASSESS PATIENT FOR HOSPICE. SON AND DAUGHTER OF PATIENT REQUESTED THAT IV INSERTION BE HELD OFF AT THIS TIME UNTIL THE PLAN FOR PATIENT IS KNOWN BECAUSE PATIENT HAS HX OF PULLING OUT HER IVS. RN VERBALIZED UNDERSTANDING. DR. CERVANTES AWARE OF FAMILY'S REQUEST. PER PATIENT'S DAUGHTER ABDON, SHE HAD CALLED [facility]OSPICE TO UPDATE THEM ABOUT THE PATIENT'S PLAN OF CARE. THEY SAID THAT THEY WERE WAITING FOR HOSPITAL TO CALL THEM SO THEY CAN SET UP TIME TO COME EVALUATE PATIENT. RN VERBALIZED UNDERSTANDING.
[2017-11-05] MEDS ORDERED: guaiFENesin 20 MG/ML UDC PO PRN (11:05)
--- NOTE | 2017-11-05 11:09 | NUR ---
REASON FOR EVALUATION: LOW IDALIA SCORE/SACRAL WOUND SKIN ASSESSMENT DONE WITH THIS 82 Y/O FEMALE PT ADMITTED FROM HOME TO [facility] WITH INITIAL DX SOB. PAST MEDICAL HX INCLUDES HTN, A FIB, CAD S/P HI, S/P FALL A WEEK AGO, HOME HOSPICE WITH [facility]. ALL ABOVE INFORMATION OBTAINED FROM ADMISSION H&P AND DAUGHTER. DAUGHTER IS AAX4. LABS ARE WBC 8.9, H/H 8.3/26, GLUCOSE 90 AND ALBUMIN 3.0. PT IS ASLEEP. SKIN IS WARM AND DRY WITH MULTIPLE ECCHYMOSIS UPPER EXTREMITIES, BLE NO HAIR GROWTH, NO EDEMA. DORSAL PEDAL PULSES PRESENT AND NORMAL. CAPILLARY REFILLED < 2 SEC. X 10 TOES. INCONTINENT OF BOWEL AND BLADDER. PLAN OF CARE DISCUSSED WITH PRIMARY RN, PT., DAUGHTER AND SON. ALL QUESTIONS ANSWERED. NO OPEN ACTIVE WOUND TO SACRALCOCCYX AREA, SKIN DRY, CLEAN AND INTACT. INTEGUMENTARY: -LEFT EYEBROW S/P LACERATION WITH MULTIPLE SUTURES IN PLACE, 3CM IN LENGTH, DRY, CLEAN, NO ODOR, NO S/S OF INFECTION -LEFT FACE THIN SCABS 2X2 CM, PINK AND DRY, SANDRA-WOUND SKIN INTACT, NO S/S OF INFECTION. -RIGHT UPPER ARM 2 SKIN TEARS WITH LARGEST ON RIGHT FOREARM 4X2X0.1 CM, WOUND BED IS PINK AND MOIST, NO ODOR, SANDRA-WOUND SKIN INTACT. SMALLEST TO RIGHT WRIST 0.5X1.5X0.1 CM DRY AND CLEAN. RECOMMENDATIONS: -KEEP SKIN DRY AND CLEAN AT ALL TIMES, PLEASE CHECK Q2H AND PRN FOR INCONTINENCY OF BOWEL AND BLADDER. - LEFT EYEBROW SUTURES, LEFT FACE THIN SCABS AND RIGHT ARM SKIN TEARS: CLEANSE WITH NS. APPLY VERSATEL DRESSING AND COVER WITH DRY DRESSING CHANGE Q7 DAYS AND PRN IF SOILING. -OFFLOAD BILATERAL HEELS BY PLACING PILLOWS UNDER CALVES UNLESS OTHERWISE CONTRAINDICATED -PRESSURE REDISTRIBUTION SURFACE THERAPY -TURN AND REPOSITION Q2H, OFFLOAD SACRALCOCCYX BY TURNING RIGHT AND LEFT -CONTINUE TO FOLLOW RD RECOMMENDATIONS ALL ABOVE RECOMMENDATIONS DISCUSSED WITH PRIMARY RN. AND DR. CERVANTES WILL FOLLOW UP PT Q7-10 DAYS. PLEASE CONTACT WOUND CARE NURSE FOR ANY QUESTION AND CHANGE OF WOUND CONDITION.
--- NOTE | 2017-11-05 11:30 | NUR ---
CALLED ANGELITO, HOME CARE PROVIDER, TO INQUIRE ABOUT PATIENT'S PLAN WITH [facility]. ANGELITO STATED THAT PAPERWORK HAS BEEN FAXED, WAITING FOR THEM TO CALL PATIENT'S DAUGHTER.
[2017-11-05 12:00] VITALS: BP 104/43
--- NOTE | 2017-11-05 12:00 | NUR ---
ZOSYN IVBP NOT ADMINISTERED AT THIS TIME DUE TO NO IV ACCESS PER PATIENT'S FAMILY REQUEST. INFORMED PATIENT'S DAUGHTER ABDON THAT PER ANGELITO LOCK ASSEMBLER, PAPERWORK HAS BEEN FAXED TO [facility]. AWAITING FOR THEM TO CALL ABDON TO SCHEDULE EVALUATION. ABDON VERBALIZED UNDERSTANDING AND STATED THAT SHE WILL FOLLOW UP WITH KARLO.
[2017-11-05] MEDS ORDERED: ALBUTEROL SULFATE/IPRATROPIU 3 ML SOL IH SCH (12:02)
[2017-11-05] MEDS: NACL 0.9% 1,000 ML IV SCH (12:24)
--- NOTE | 2017-11-05 14:31 | NUR ---
NEW IV STARTED ON LEFT FA, 22 G, PATENT, INTACT, ASYMPTOMATIC. PATIENT TOLERATED IT WELL. ORDERED MEDICATION GIVEN. PATIENT TOLERATING IT WELL. WILL CONTINUE TO MONITOR PATIENT AND WAIT FOR [facility] TO COME AND EVALUATE HER. DAUGHTER ABDON AT BEDSIDE.
--- NOTE | 2017-11-05 14:40 | NUR ---
KARLO RINCON, АННА, IN TO SPEAK TO PATIENT AND HER DAUGHTER ABDON. WILL AWAIT FOR HER ASSESSMENT.
--- NOTE | 2017-11-05 15:26 | NUR ---
DAUGHTER ABDON HAD CONCERNS ABOUT PATIENT BEING DISCHARGED HOME WITH [facility] WITH PATIENT STILL COUGHING UNPRODUCTIVELY. SPOKE TO DR. CERVANTES AND TOLD HIM ABOUT ABDON'S QUESTIONS. HE SAID HE WILL BE IN TO SPEAK WITH PATIENT AND DAUGHTER ADBON. RN VERBALIZED UNDERSTANDING.
[2017-11-05] MEDS ORDERED: AZIT250T3 PO (15:30)
--- NOTE | 2017-11-05 15:41 | NUR ---
DR AGUIRRE AND DR. CERVANTES IN TO SPEAK TO THE PATIENT'S DAUGHTER, ABDON. WILL WAIT FOR THEIR EVALUATION.
--- NOTE | 2017-11-05 15:59 | NUR ---
PATIENT'S DAUGHTER ABDON NOW AGREEABLE TO DISCHARGE. RN VERBALIZED UNDERSTANDING.
[2017-11-05 16:00] VITALS: BP 108/55
[2017-11-05] MEDS ORDERED: LACT10CA1 PO (16:07)
--- NOTE | 2017-11-05 16:07 | NUR ---
PATIENT COUGHING NONPRODUCTIVELY AND BREATHING LABORED. O2 SATURATION 96% ON 2L O2 VIA NC. PRN ROBITUSSIN GIVEN. PATIENT TOLERATING IT. DAUGHTER ABDON AND KARLO JJ AT BEDSIDE. WILL CONTINUE TO MONITOR PATIENT WHILE WORKING ON DISCHARGE PAPERWORK.
--- NOTE | 2017-11-05 16:46 | NUR ---
DISCHARGE INSTRUCTIONS AND EDUCATION GIVEN TO PATIENT WITH HER CAREGIVER DAUGHTER ABDON AT BEDSIDE ABOUT PRESCRIPTIONS FROM DR. CERVANTES. PATIENT AND ABDON VERBALIZED UNDERSTANDING. IV REMOVED, IV CATHETER INTACT, MINIMAL BLOOD NOTED. ID BANDS REMOVED, TELE MONITOR REMOVED. PATIENT HAS BEEN CHANGED INTO HER OWN CLOTHING, TRANSPORT FROM [facility] IS HERE. PATIENT WILL NOW BE TRANSFERRED HOME.
--- NOTE | 2017-11-05 17:15 | NUR ---
PATIENT WHEELED OFF FLOOR BY [facility]. KARLO JJ AT BEDSIDE. DAUGHTER ABDON AND SON GUSTAVO AT BEDSIDE. PATIENT IN STABLE CONDITION. PATIENT DISCHARGED HOME ON [facility]. Addendum: 11/05/17 at 1822 by Rahat Cameron RN RUTHANN TOOK ALL OF PATIENT'S BELONGINGS HOME WITH HIM.
[2017-11-06] MEDS ORDERED: LEVOTHYROXINE 0.025 MG, LEVOTHYROXINE 0.1 MG PO SCH ×2 (06:30)
[2017-11-06 07:27] LABS: FOLIC ACID 15.2 ng/mL (>3.0)
[2017-11-06] MEDS ORDERED: FERROUS SULFATE 300 MG/5 ML UDC PO SCH (08:00)
== END 2017-11-05 17:15 | disposition hospice, home (50) | DRG 720 ==
LOC: MED 17:39 → MTU 20:27
PROVIDERS: ADMIT General Practice; ATTEND General Practice
PROC: 5A09357 Assistance with Respiratory Ventilation, Less than 24 Consecutive Hours, Continuous Positive Airway Pressure (ICD-10-PCS; principal; 2017-11-02)
PROC: 5A09357 Assistance with Respiratory Ventilation, Less than 24 Consecutive Hours, Continuous Positive Airway Pressure (ICD-10-PCS; 2017-11-04)
DX: A41.9 Sepsis, unspecified organism (principal); J69.0 Pneumonitis due to inhalation of food and vomit; J96.01 Acute respiratory failure with hypoxia; N17.0 Acute kidney failure with tubular necrosis; I50.43 Acute on chronic combined systolic (congestive) and diastolic (congestive) heart failure; G93.40 Encephalopathy, unspecified; E44.0 Moderate protein-calorie malnutrition; I27.20 Pulmonary hypertension, unspecified; E66.01 Morbid (severe) obesity due to excess calories; I11.0 Hypertensive heart disease with heart failure; N39.0 Urinary tract infection, site not specified; I25.10 Atherosclerotic heart disease of native coronary artery without angina pectoris; J44.9 Chronic obstructive pulmonary disease, unspecified; E03.9 Hypothyroidism, unspecified; D50.9 Iron deficiency anemia, unspecified; J98.11 Atelectasis; I48.91 Unspecified atrial fibrillation; M81.0 Age-related osteoporosis without current pathological fracture; I25.2 Old myocardial infarction; Z79.899 Other long term (current) drug therapy; Z79.01 Long term (current) use of anticoagulants; Z74.01 Bed confinement status; Z99.3 Dependence on wheelchair; Z79.82 Long term (current) use of aspirin; Z87.891 Personal history of nicotine dependence; Z83.3 Family history of diabetes mellitus; Z95.5 Presence of coronary angioplasty implant and graft; Z68.35 Body mass index [BMI] 35.0-35.9, adult
CPT/HCPCS: 36415; 71045; 80048; 80053; 81001; 82150; 82550; 82607; 82728; 82746; 82948; 83036; 83540; 83605; 83690; 83735; 83880; 84100; 84439; 84443; 84484; 85025; 85045; 85610; 85730; 87040; 87070; 87081; 87086; 87205; 89220; 93005; 94640; 94660; 96365; 96367; 99291; C1758; J0456; J0696; J1815; J1940; J2001; J2543; J3480; J7030; J7060; J7620; J7626; Q0092

== ENCOUNTER 2018-08-22 11:46 | Inpatient (IN) | payer MEDICAID, MEDICARE ==
[~2018-08-22] VITALS: Ht 152.4 cm; Wt 72.6 kg
[~2018-08-22 11:46] MED LIST changes: -AMLO1TAB32 PO; -APIX2.5 PO; +AZIT250T3 PO; -CARV3.12 PO; -CLIN300C2 PO; -CLOP75TA55 PO; -DICL-388 PO; -FAMO-90 PO; -FERR325E14 PO; -LACT10CA PO; +LACT10CA1 PO; -LEVO500T98 PO; +POTA10TE30 PO; +SENN-72 PO; -[UNRECOGNIZED DRUG - CODE] PO
--- NOTE | 2018-08-22 11:47 | NUR ---
DOCTOR AT BEDSIDE
--- NOTE | 2018-08-22 11:47 | NUR ---
PATIENT TRASNFERRED TO BED 10
[2018-08-22 11:55] VITALS: BP 150/88
[2018-08-22] MEDS ORDERED: FUROSEMIDE 40 MG/4 ML VIAL IVP ONE (11:55)
[2018-08-22 12:06] VITALS: BP 150/88
--- NOTE | 2018-08-22 12:08 | NUR ---
X-RAY AT BEDSIDE
--- NOTE | 2018-08-22 12:09 | NUR ---
PT TO ED VIA EMS FOR C/O RESPIRATORY DISTRESS. PER PT FAMILY MEMBER "SHE WAS ON HOSPICE AND SHE GOT MORPHINE THIS MORNING AND THEN SHE STARTED TO TURN A WEIRD COLOR AND BREATHING FUNNY" EXPIRATORY CRACKLES HEARD TO BILATERAL LOBES. PT ARRIVED TO ED ON CPAP AND PLACED ON BIPAP UPON ARRIVAL TO DEPT. ER MD AT BEDSIDE. PT PLACED INTO BED, FAMILY AT BEDSIDE.
--- NOTE | 2018-08-22 12:13 | NUR ---
PT BIBA TO ED ON CPAP. PER MD TO PLACE PT ON BIPAP. PT ON BIPAP WITH CHARTED SETTINGS.MASK MEDIUM WITH PROTECTIVE SKIN GEL UNDER. SKIN INTACT. PT IS AWAKE AND QUIET. BIPAP CONNECTED TO RED OUTLET. ALARMS AUDIBLE. AMBU BAG AT BEDSIDE. PT IS IN MILD DISTRESS. PT IS CALM AND SMILING. DAUGHTER AT BEDSIDE. MD ORDOÑEZ AT BEDSIDE WELL CHARGE ENDY ODONNELL AND ASSIGNED NURSE SHIRA. WILL CONTINUE TO MONITOR.
[2018-08-22 12:17] LABS: MEAN CORPUSCULAR HEMOGLOBIN 20 pg (27-31); RED CELL DISTRIBUTION WIDTH 20.6 % (11.6-13.7); WHITE BLOOD COUNT (AUTO) 8.2 K/uL (4.8-10.8)
[2018-08-22] MEDS ORDERED: ASPI-1718 PO (12:18)
[2018-08-22] MEDS ORDERED: CARV3.12 PO (12:18)
[2018-08-22] MEDS ORDERED: APIX2.5 PO (12:18)
[2018-08-22 12:30] LABS: HEMOGLOBIN 9.2 g/dL (12.0-16.0); MEAN CORPUSCULAR HGB CONC 30 g/dL (33-37); MEAN CORPUSCULAR VOLUME 67.9 fL (80-94); PLATELET COUNT (AUTO) 326 K/uL (140-450); RED BLOOD CELL COUNT(AUTO) 4.56 MIL/uL (4.20-5.40)
[2018-08-22 12:34] LABS: ALBUMIN 3.3 g/dL (3.4-5.0); ASPARTATE AMINOTRANSFERASE 14 U/L (15-37); CARBON DIOXIDE 30.4 mmol/L (21-32); CHLORIDE 108 mmol/L (98-107); GLUCOSE 155 mg/dL (74-106); POTASSIUM 4.4 mmol/L (3.5-5.1); SODIUM SERUM 145 mmol/L (136-145); TOTAL BILIRUBIN 0.6 mg/dL (0.0-1.0); UREA NITROGEN, BLOOD 21 mg/dL (7-18)
[2018-08-22 13:09] LABS: BASOPHILS % (MANUAL) 0 % (0-2); EOSINOPHILS % (MANUAL) 0 % (0-4); LYMPHOCYTES % (MANUAL) 13 % (20-46); MONOCYTES % (MANUAL) 9 % (5-12)
--- NOTE | 2018-08-22 13:25 | NUR ---
PT REMAINS ON BIPAP. FAMILY AT BEDSIDE. INFORMED OF PLAN OF CARE. NO NEW QUESTIONS OR CONCERNS.
--- NOTE | 2018-08-22 13:28 | NUR ---
DR. ORDOÑEZ BEDSIDE
--- NOTE | 2018-08-22 13:33 | NUR ---
DR ORDOÑEZ AT BEDSIDE FOR RE-EVALUATION. OKAY TO REMOVE BIPAP AND PLACE ON 02 NC. CRACKLES DECREASED BILATERALLY. PT PLACED ON 02 3L NC. TOLERATING WELL.
[2018-08-22] MEDS ORDERED: ALBUTEROL 0.083% 2.5 MG/3 ML NEBU INH ONE (13:35)
--- NOTE | 2018-08-22 13:45 | NUR ---
PT OFF BIPAP PER MD ORDOÑEZ REQUEST. PT IS NOT IN DISTRESS OF NOW. [facility] IS GIVING NOW. WILL CONTINUE TO MONITOR. FAMILY AT BEDSIDE.
[2018-08-22] MEDS: NACL 0.9% 1,000 ML IV SCH (15:47)
[2018-08-22] MEDS ORDERED: DOCUSATE SODIUM 100 MG GELCAP PO PRN (15:50)
[2018-08-22] MEDS ORDERED: ONDANSETRON 4 MG/2 ML VIAL IM/IVP PRN (15:50)
[2018-08-22] MEDS ORDERED: HYDROcodone/APAP 5/325 MG 1 TAB TAB PO PRN (15:50)
[2018-08-22 16:30] VITALS: BP 115/68
--- NOTE | 2018-08-22 16:30 | NUR ---
Patient will be admitted to care of DR JADE. Admited to TELE. Will go to room 113. Belongings list completed. Report to MCKENZIE MERCADO.
--- NOTE | 2018-08-22 16:30 | NUR ---
RECEIVED BEDSIDE REPORT FROM BESSIE SILVA RN. PATIENT ON TELE MONITOR AND STANDARD PRECAUTIONS IN PLACE. PATIENT UNABLE TO AMBULATE AND INCONTINENT, ON 3 L O2 NC, NO DISTRESS NOTED. SKIN INTACT. FALL RISK PROTOCOL IN PLACE. IV ON L AC 20 G , IV PATENT AND INTACT. BED IN LOW POSITION, CALL LIGHT WITHIN REACH, SIDE RAILS X2 UP
[2018-08-22 16:44] LABS: MAGNESIUM 2.2 mg/dL (1.8-2.4); THYROID STIMULATING HORMONE 0.14 uIU/mL (0.34-3.74)
--- NOTE | 2018-08-22 17:24 | NUR ---
PT SON REFUSED ABG. MD MARVIN AWARE. PT IS ASLEEP COMFORTABLY. NO SOB OR DISTRESS NOTED. WILL CONTINUE TO MONITOR.
[2018-08-22 17:29] LABS: PROTHROMBIN TIME 10.8 secs (10.8-13.4)
[2018-08-22] MEDS: FUROSEMIDE 40 MG/4 ML VIAL IVP SCH (18:13)
--- NOTE | 2018-08-22 18:53 | NUR ---
NEW IV INSERTED ON L H 22G INFUSING NS AT 10, IV PATENT AND INTACT
--- NOTE | 2018-08-22 19:05 | NUR ---
GAVE BEDSIDE REPORT TO MCKENZIE SURESH. PATIENT ENDORSED IN STABLE CONDITION
--- NOTE | 2018-08-22 19:06 | NUR ---
RECEIVED BEDSIDE REPORT FROM KENN CORNELL. PT A/O X1 TO NAME. DISCUSSED PLAN OF CARE WITH PT. PT SPEAKS TELUGU AND WELSH. ABLE TO COMMUNICATE IN WELSH. FAMILY AT BEDSIDE. STD PRECAUTIONS. FALL PRECAUTIONS IN PLACE. YELLOW GOWN, WRISTBAND, YELLOW SOCKS, SIGN AT DOOR. STRCT I/O'S. NO SIGNS OF RESP DISTRESS. NC @2L. SKIN INTACT. R HAND 22G NS @10. IV SITE PATENT AND INTACT. BED IN LOW POSITION. CALL LIGHT WITHIN REACH. WILL CONTINUE TO MONITOR.
[2018-08-22 20:00] VITALS: BP 112/62
[2018-08-22] MEDS: guaiFENesin 600 MG TABER PO SCH (20:06)
[2018-08-22] MEDS: CARVEDILOL 3.125 MG TAB PO SCH (20:08)
[2018-08-22] MEDS: ACETAMINOPHEN 325 MG TAB PO PRN (20:09)
[2018-08-22] MEDS: methylPREDNISolone SS 125 MG/2 ML VIAL IVP SCH (20:10)
[2018-08-22] MEDS: APIXABAN 2.5 MG TAB PO SCH (20:16)
[2018-08-22] MEDS ORDERED: LACTULOSE 20 GM/30 ML UDC PO SCH (21:00)
[2018-08-22] MEDS ORDERED: methylPREDNISolone SS 80 MG in WATER STERILE 1 ML IV SCH (21:00)
--- NOTE | 2018-08-22 21:00 | NUR ---
ADMINISTERED SCHEDULED MEDS ORDERED. CRUSHED PO MEDS. MIXED WITH APPLE SAUCE. ABLE TO SWALLOW SAUCE. TOLERATED WELL. NO SIGNS OF DISTRESS. BED IN LOW POSITION. CALL LIGHT WITHIN REACH. WILL CONTINUE TO MONITOR.
[2018-08-22] MEDS: ALBUTEROL SULFATE/IPRATROPIU 3 ML SOL IH PRN (21:30)
--- NOTE | 2018-08-22 23:00 | NUR ---
PT COUGH IS PRODUCTIVE. BUT PT UNABLE TO LEAN FORWARD TO REMOVE PHLEM. ORAL SUCTION AT BEDSIDE TO ASSIST WITH REMOVING PHLEM. FAMILY AT BEDSIDE. DAUGHTER STATES SHE USES THE ORAL SUCTION ALL THE TIME FOR HER MOTHER. REQUESTED THAT SHE WOULD LIKE TO USE IF NECESSARY. EDUCATED ON HOW ORAL SUCTION PROPER USE. DAUGHTER GAVE DEMONSTRATION ON SUCTION USE. DAUGHTER SUCTIONED TO REMOVE VISIBLE PHLEM. PT TOLERATED WELL. NO DISTRESS NOTED. PT THROAT SOUNDS MORE CLEAR. NO LONGER HAS COUGH AT THIS MOMENT. O2 SATURATION @96. WILL CONTINUE TO MONITOR.
[2018-08-23] VITALS: BP 105/67
--- NOTE | 2018-08-23 01:00 | NUR ---
PT SLEEPING IN BED. NO SIGNS OF DISTRESS. EASILY AROUSABLE. EVEN CHEST RISE. FAMILY AT BEDSIDE. WILL CONTINUE TO MONITOR.
--- NOTE | 2018-08-23 03:04 | NUR ---
PT SLEEPING IN BED EASILY AROUSABLE. EVEN CHEST RISE. NO SIGNS OF DISTRESS. WILL CONTINUE TO MONITOR.
[2018-08-23 04:00] VITALS: BP 102/66
[2018-08-23] MEDS: methylPREDNISolone SS 125 MG/2 ML VIAL IVP SCH ×3 (04:30→20:19)
--- NOTE | 2018-08-23 04:50 | NUR ---
ADMINISTERED SCHEDULED MEDS ORDERED. EDUCATED PT. TOLERATED WELL. VITALS TAKEN. VITALS ARE WITHIN NORMAL LIMITS. APPLIED SCD DEVICES. REPOSITIONED PT IN BED. HOB ELEVATED. FAMILY AT BEDSIDE. DAUGHTER FEEDING PATIENT PUDDING AND APPLE SAUCE. PT TOLERATING WELL. NO SIGNS OF DISTRESS. NO SOB. BED IN LOW POSITION. CALL LIGHT WITHIN REACH. WILL CONTINUE TO MONITOR.
--- NOTE | 2018-08-23 05:51 | NUR ---
PT IS SLEEPING. DAUGHTER AT BEDSIDE. NO SIGNS OF DISTRESS. NO SOB. BED IN LOW POSITION. CALL LIGHT WITHIN REACH. WILL CONTINUE TO MONITOR.
[2018-08-23] MEDS ORDERED: LEVOTHYROXINE 0.025 MG TAB PO SCH (06:30)
[2018-08-23] MEDS ORDERED: SODIUM FERRIC GLUCONATE 125 MG in NACL 0.9% 100 ML IV SCH (06:35)
[2018-08-23 06:45] LABS: BASOPHILS % (AUTO) 0.2 % (0.0-2.0); HEMATOCRIT 31.5 % (36-48); HEMOGLOBIN 9.4 g/dL (12.0-16.0); LYMPHOCYTES # (AUTO) 0.6 K/uL (2.5-16.5); LYMPHOCYTES % (AUTO) 10.2 % (20.5-51.1); MEAN CORPUSCULAR HEMOGLOBIN 20 pg (27-31); MEAN CORPUSCULAR HGB CONC 30 g/dL (33-37); MEAN CORPUSCULAR VOLUME 67.5 fL (80-94); MONOCYTES % (AUTO) 0.5 % (1.7-9.3); NEUTROPHILS # (AUTO) 5.4 K/uL (1.8-7.7); NEUTROPHILS % (AUTO) 89.1 % (42.2-75.2); PLATELET COUNT (AUTO) 324 K/uL (140-450); RED BLOOD CELL COUNT(AUTO) 4.66 MIL/uL (4.20-5.40); RED CELL DISTRIBUTION WIDTH 20.8 % (11.6-13.7); WHITE BLOOD COUNT (AUTO) 6.1 K/uL (4.8-10.8)
[2018-08-23 06:59] LABS: T4 (THYROXINE) 8.5 ug/dL (4.5-12.0)
[2018-08-23 07:00] LABS: ANION GAP 11.6 (8-16); CARBON DIOXIDE 33.3 mmol/L (21-32); CHLORIDE 104 mmol/L (98-107); CREATININE 1.3 mg/dL (0.6-1.3); GLUCOSE 222 mg/dL (74-106); POTASSIUM 3.9 mmol/L (3.5-5.1); SODIUM SERUM 145 mmol/L (136-145); UREA NITROGEN, BLOOD 25 mg/dL (7-18)
[2018-08-23 07:10] LABS: MAGNESIUM 2.1 mg/dL (1.8-2.4)
--- NOTE | 2018-08-23 07:27 | NUR ---
ENDORSED PT TO DAYSHIFT MCKENZIE GRACE. PT IN STABLE CONDITION.
--- NOTE | 2018-08-23 07:28 | NUR ---
RECEIVED REPORT TO FLIGHT COMMUNICATIONS SPECIALIST NURSE DEMETRICE FOR CONTINUITY OF CARE. PT IN STABLE CONDITION. RESPIRATIONS EVEN AND UNLABORED. IV INTACT AND PATENT. SAFETY MEASURES IN PLACE. FAMILY AT BEDSIDE. CALL LIGHT AT BEDSIDE. BED ALARM ON. BED IN LOW POSITION. WILL CONTINUE TO MONITOR.
[2018-08-23 08:00] VITALS: BP 102/52
--- NOTE | 2018-08-23 08:02 | NUR ---
PATIENT HAS BEEN SCREENED AND CATEGORIZED MODERATE NUTRITION RISK. PATIENT WILL BE SEEN WITHIN 3-5 DAYS OF ADMISSION. 08/25/18[address]
[2018-08-23] MEDS: CARVEDILOL 3.125 MG TAB PO SCH ×3 (09:00→20:19)
[2018-08-23 09:32] LABS: TRANSFERRIN 335 mg/dL (200-370)
--- NOTE | 2018-08-23 09:34 | NUR ---
PT LYING IN BED SLEEPING AT THIS TIME. RESPIRATIONS EVEN AND UNLABORED WILL CONTINUE TO MONITOR. BED IN LOW POSITION. BED ALARM ON. CALL LIGHT AT BEDSIDE.
[2018-08-23] MEDS: SODIUM FERRIC GLUCONATE 125 MG in NACL 0.9% 100 ML IV SCH (09:57)
[2018-08-23] MEDS: FUROSEMIDE 40 MG/4 ML VIAL IVP SCH ×2 (09:58→17:42)
[2018-08-23] MEDS: ATORVASTATIN 20 MG TAB PO SCH (09:58)
[2018-08-23] MEDS: ASPIRIN 81 MG TAB.CHEW PO SCH (09:58)
[2018-08-23] MEDS: PANTOPRAZOLE 40 MG TABEC PO SCH (09:58)
[2018-08-23] MEDS: guaiFENesin 600 MG TABER PO SCH ×2 (09:59→20:19)
[2018-08-23] MEDS: APIXABAN 2.5 MG TAB PO SCH ×2 (10:40→20:34)
--- NOTE | 2018-08-23 11:06 | NUR ---
ASSISTED CHANGING AFTER URINATION PERFORMED SANDRA CARE. PT TOLERATED WELL. BED IN LOW POSITION. BED ALARM ON. CALL LIGHT AT BEDSIDE. WILL CONTINUE TO MONITOR.
[2018-08-23 12:00] VITALS: BP 106/61
--- NOTE | 2018-08-23 13:24 | NUR ---
PT LYING IN BED SLEEP WITH FAMILY AT BEDSIDE. RESPIRATIONS EVEN AND UNLABORED. BED IN LOW POSITION. BED ALARM ON. CALL LIGHT AT BEDSIDE. WILL CONTINUE TO MONITOR.
--- NOTE | 2018-08-23 14:02 | NUR ---
GINNY OSEGUERA AT BEDSIDE FOR CONSULT AT THIS TIME. FAMILY AT BEDSIDE. PT IN STABLE CONDITION.
--- NOTE | 2018-08-23 14:04 | NUR ---
PT LYING IN BED FAMILY AT BEDSIDE. RESPIRATIONS EVEN AND UNLABORED WILL CONTINUE TO MONITOR. BED IN LOW POSITION. BED ALARM ON. CALL LIGHT AT BEDSIDE.
--- NOTE | 2018-08-23 15:08 | NUR ---
KATELYN attempted to conduct assessment with patient. Patient did not respond to verbal stimuli. Patient�s daughter aDksha [phone] was present and was able to complete assessment. Daksha verified that patient�s PCP was Dr. Radha Chapa but could not recall when patient was last seen by this doctor. Daksha reports that patient is currently on hospice through [facility]. Patient lives with Daksha and Navin two children, and that Daksha is her emergency contact. Daksha reports that patient has oxygen at home, a hospital bed, and other related DME. Patient is completely dependent with ADLs. Daksha stated that patient�s tentative plan after discharge [facility]. Daksha provided hospice contact information. KATELYN called [facility] [phone] and spoke to Jamel. Jamel confirmed that patient was discharged from hospice since patient was admitted. Jamel transferred SW to [facility], who requested a doctor�s order for hospice to be faxed to [phone] in order to get readmitted to hospice. KATELYN called Dr. Ruggiero who stated that she spoke to the family and plans for discharge on Sunday. Dr. Ruggiero stated that she will provide orders once the healthcare decision maker agrees and informs her of their decision to pursue hospice. KATELYN followed up with Daksha in patient�s room and informed her. Daksha verbalized understanding. KATELYN/CM will follow up as needed.
--- NOTE | 2018-08-23 15:51 | NUR ---
ASSISTED IN REPOSITIONING. PT TOLERATED WELL. WILL CONTINUE TO MONITOR.
[2018-08-23 16:00] VITALS: BP 137/73
[2018-08-23] MEDS ORDERED: LEVO0.124 PO (16:03)
[2018-08-23] MEDS: NACL 0.9% 1,000 ML IV SCH (17:09)
--- NOTE | 2018-08-23 17:17 | NUR ---
CHANGED COVER SHEET DUE TO FOOD SPILLING ON THEM. FAMILY FEEDING PT JELL-O AT THIS TIME. PT TOLERATING WELL.
[2018-08-23] MEDS: CALCIUM ACETATE 667 MG TAB PO SCH (17:42)
--- NOTE | 2018-08-23 19:22 | NUR ---
RECIEVED PT.AWAKE AND ALERT ,EVENTHOUGHT PT IS LIMITED TO VERBAL SPEECH ,BUT PT WELL RESPONDED TO SOUNDS. IV SITE INTACT AND PATENT , LATEST O2 SAT. 42% ON O2 @ 3 LPM , ON MECHANICAL DIET RE EMPHASIZED TO CAREGIVER. ,INCONTINENT ,SKIN INTACT, ON FALL PRECAUTION PROTOCOL , BED LOW IN POSITION, SIDERAILS UP X2 ,CALL LIGHT WITHIN REACH . PLAN OF CARE DISCUSSED WITH RELATIVE AT BEDSIDE , RELATIVE VERBALIZE UNDERSTANDING. WILL CONTINUE TO MONITOR.
--- NOTE | 2018-08-23 19:22 | NUR ---
GAVE REPORT TO CHEMICAL LABORATORY TECHNICIAN NURSE ANUPAMA FOR CONTINUITY OF CARE. PT IN STABLE CONDITION.
[2018-08-23 20:00] VITALS: BP 107/62
--- NOTE | 2018-08-23 23:10 | NUR ---
MADE ROUNDS , PATIENT BECOME RESTLESS , RR 26 CPM , O2 SAT. 86 , REFERRED TO ALIA , ,S/E BY ALIA ,REFERRED TO RT ON DUTY -STAT BREATHING BREATHING TREATMENT , INCREASE 02 INHALATION TO T0 4LPM /NC ORDERED , MAINTAINED ON HIGH BACK REST , ALIA AND RT ON DUTY AT BEDSIDE , PUT ON CONTINOUS O2 SAT. MONITORING. ,BI PAP ON BED SIDE STANDBY , ON CLOSELY MONITORING. SUNCTION DONE BY RT ON DUTY, CALL LIGHT WITH IN REACH , CAREGIVER AT BEDSIDE.
[2018-08-23] MEDS: ALBUTEROL SULFATE/IPRATROPIU 3 ML SOL IH PRN (23:20)
--- NOTE | 2018-08-23 23:42 | NUR ---
CAME TO PATIENT WITH SATURATIONS OF 85%. ASSESSED THE PATIENT & ADMINISTERED A BREATHING TX. PT STARTED SATURATING BETWEEN 88-93%. SWITCHED PT TO OXYMIZER 5L
[2018-08-24] VITALS: BP 98/35
--- NOTE | 2018-08-24 | NUR ---
PT PUT ON O2 INHALATION PER OXIMIZER , INCREASED O2 TO 5LPM BY RT ON DUTY , WATCH OUT CLOSELY , O2 SAT FLUACTUATING TO 90% TO 89%. IVF INFUSING WELL.
[2018-08-24] MEDS ORDERED: NACL 0.9% 250 ML IV ONE (00:20)
--- NOTE | 2018-08-24 00:20 | NUR ---
REFERRED TO [facility]IA TO DUE TO PERSITENT LOW BP 95/ 35 MMHG , STAT 250 CC NSS IVF BOLUS ORDERED. WILL CONTINUE TO MONITOR 90%. CAREGIVER AT BEDSIDE . CALL LIGHT WITH IN REACH .
--- NOTE | 2018-08-24 02:00 | NUR ---
PT ON CLOSELY MONITORED BP 90/60 02 SAT 92 ,IVF INFUSING WELL . VOIDE ONE FULLY SOAKED DIAPER URINE, CALL LIGHT WITHIN REACH ,CAREGIVER AT BEDSIDE
[2018-08-24 04:00] VITALS: BP 90/60
--- NOTE | 2018-08-24 04:00 | NUR ---
V/S TAKEN O2 FLACTUATING TO 89 AND 90% ON CLOSELY WATCH . VISITED OFTEN , ALIA AWARED ABOUT THE CONDITION. CALL LIGHT WITHIN REACH CAREGIVER AT BED SIDE .
--- NOTE | 2018-08-24 05:06 | NUR ---
WENT TO CHECK ON PATIENT, PATIENTS SATURATION WAS BETWEEN 89-95%, NO DISTRESS NOTED AT THIS TIME. WILL CONTINUE TO MONITOR PATIENT
--- NOTE | 2018-08-24 06:00 | NUR ---
BLOOD EXTRACTED PER VENIPUNCTURE AND SENT TO LAB OREDERED , O2 SAT 92% LATEST BP 90/60 - ALIA INFORMED. ON CLOSELY WATCH . BI PAP ON BED SIDE.
[2018-08-24] MEDS: methylPREDNISolone SS 40 MG/ML VIAL IVP SCH ×3 (06:31→21:37)
[2018-08-24] MEDS: PANTOPRAZOLE 40 MG TABEC PO SCH (06:32)
--- NOTE | 2018-08-24 07:28 | NUR ---
ENDORSED TO AM SHIFT FOR CONTINUITY OF CARE,
--- NOTE | 2018-08-24 07:28 | NUR ---
RECEIVED BEDSIDE REPORT FROM COMMUNITY HEALTH ADVOCATE NURSE FOR CONTINUITY OF CARE. PATIENT IS RESTING ON BED AT THIS TIME. PATIENT IS AAOX1 TO NAME. PATIENT WAS NOT ABLE TO ANSWER QUESTION WHEN BEING ASK. FLACC 0. RESPIRATION EVEN AND UNLABORED ON OXYMIZER 5LPM, SPO2 93% AT THIS TIME. NO SIGNS OF DISTRESS NOTED. IV ON ON L WRIST 22G, WARP AROUND WITH KERLIX, INTACT AND CLEAN , INFUSING PER MD ORDER. SKIN INTACT AND LOOSE. PATIENT IS BEDREST AND INCONTINENT. DISCUSSED PLAN OF CARE WITH PATIENT'S DAUGHTER AND DAUGHTER VERBALIZED UNDERSTAND. TELE MONITOR ATTACHED. SPO2 MONITOR AT BEDSIDE. SEQUENTIAL COMPRESSION SOCKS IN PLACE. BED ALARM ACTIVATED. BED IN LOW POSITION AND CALL LIGHT WITHIN REACH. INSTRUCTED PATIENT'S DAUGHTER TO USE THE CALL LIGHT FOR ANY ASSISTANCE AND SHE VERBALIZED OK.
[2018-08-24 07:59] LABS: HEMATOCRIT 31.2 % (36-48); HEMOGLOBIN 9.4 g/dL (12.0-16.0); LYMPHOCYTES # (AUTO) 0.7 K/uL (2.5-16.5); LYMPHOCYTES % (AUTO) 5.4 % (20.5-51.1); MEAN CORPUSCULAR HEMOGLOBIN 20 pg (27-31); MEAN CORPUSCULAR HGB CONC 30 g/dL (33-37); MEAN CORPUSCULAR VOLUME 67.9 fL (80-94); MONOCYTES # (AUTO) 0.3 K/uL (0.8-1.0); MONOCYTES % (AUTO) 2.6 % (1.7-9.3); NEUTROPHILS # (AUTO) 12.2 K/uL (1.8-7.7); PLATELET COUNT (AUTO) 330 K/uL (140-450); RED BLOOD CELL COUNT(AUTO) 4.59 MIL/uL (4.20-5.40); RED CELL DISTRIBUTION WIDTH 20.5 % (11.6-13.7); WHITE BLOOD COUNT (AUTO) 13.2 K/uL (4.8-10.8)
[2018-08-24 08:00] VITALS: BP 116/62
[2018-08-24] MEDS ORDERED: methylPREDNISolone SS 40 MG in WATER STERILE 1 ML IV SCH (08:00)
[2018-08-24 08:09] LABS: ANION GAP 12.2 (8-16); CHLORIDE 104 mmol/L (98-107); CREATININE 1.1 mg/dL (0.6-1.3); GLUCOSE 127 mg/dL (74-106); POTASSIUM 3.2 mmol/L (3.5-5.1); SODIUM SERUM 145 mmol/L (136-145); UREA NITROGEN, BLOOD 34 mg/dL (7-18)
[2018-08-24] MEDS: ALBUTEROL SULFATE/IPRATROPIU 3 ML SOL IH PRN ×2 (08:56→16:43)
[2018-08-24] MEDS: FERROUS SULFATE 325 MG TABEC PO SCH (09:00)
[2018-08-24] MEDS: ATORVASTATIN 20 MG TAB PO SCH (09:01)
[2018-08-24] MEDS: guaiFENesin 600 MG TABER PO SCH ×2 (09:01→21:38)
[2018-08-24] MEDS: ASPIRIN 81 MG TAB.CHEW PO SCH (09:02)
[2018-08-24] MEDS: SODIUM FERRIC GLUCONATE 125 MG in NACL 0.9% 100 ML IV SCH (09:02)
[2018-08-24] MEDS: FUROSEMIDE 40 MG/4 ML VIAL IVP SCH ×2 (09:03→16:43)
[2018-08-24] MEDS: CALCIUM ACETATE 667 MG TAB PO SCH (09:04)
[2018-08-24] MEDS: CARVEDILOL 3.125 MG TAB PO SCH ×2 (09:04→21:39)
[2018-08-24] MEDS: APIXABAN 2.5 MG TAB PO SCH ×2 (09:06→23:00)
--- NOTE | 2018-08-24 09:10 | NUR ---
CHECKED BP PRIOR TO MED ADMINISTRATION, BP 125/60, PULSE 83 SPO 94% ON 5LPM OXYMIZER. ADMINISTERED MEDS PER MD ORDER,CRUSHED MEDS AND MIXED IN APPLE SAUCE, PATIENT TOLERATED WELL. PATIENT IS AWAKE ON BED. DAUGHTER IS BY BEDSIDE. SAFETY MEASURES IN PLACE. TELE MONITOR ATTACHED. SEQUENTIAL COMPRESSION SOCKS IN PLACE. BED ALARM ACTIVATED.
--- NOTE | 2018-08-24 09:28 | NUR ---
DR BRUSH IS TALKING TO PATIENT'S DAUGHTER AT BEDSIDE. NO SIGNS OF DISTRESS NOTED. TELE MONITOR ATTACHED. SAFETY MEASURES IN PLACE.
[2018-08-24] MEDS ORDERED: POTASSIUM CHLORIDE 10 MEQ TABER PO SCH (10:00)
--- NOTE | 2018-08-24 11:16 | NUR ---
PATIENT IS AWAKE AND RESTING ON BED. FLACC 0. RESPIRATION EVEN AND UNLABORED ON 2LPM VIA OXIMIZER AND SPO2 IS 96%. NO SIGNS OF DISTRESS NOTED. FAMILY BY BEDSIDE. TELE MONITOR ATTACHED. BED IN LOW POSITION AND CALL LIGHT WITHIN REACH. SEQUENTIAL COMPRESSION SOCKS IN PLACE. INSTRUCTED FAMILY TO USE THE CALL LIGHT FOR ANY ASSISTANCE AND THEY ARE AWARE.
--- NOTE | 2018-08-24 11:56 | NUR ---
ATTEMPTED TO COLLECT URINE. EDUCATED PATIENT'S FAMILY AT BEDSIDE THAT URINE NEED TO BE COLLECT FOR R/O UTI PURPOSE. PER FAMILY, IT'S NOT POSSIBLE TO COLLECT DUE TO PATIENT IS INCONTINENT. OFFERED BED DE OLIVEIRA AND STRAIGHT CATH, PER FAMILY, THEY DO NOT WANT PATIENT TO BE UNCOMFORTABLE. FAMILY REFUSED THE URINE SPECIMEN COLLECT. NOTIFIED DR BRUSH ON REGARDS OF PATIENT'S FAMILY DECISION, AND DR BRUSH WAS AWARE URINE IS NOT COLLECTED.
[2018-08-24 12:00] VITALS: BP 118/64
[2018-08-24 12:05] LABS: MAGNESIUM 2.2 mg/dL (1.8-2.4)
[2018-08-24] MEDS: PIPER/TAZO 2.25GM/D5W PREMIX 50 ML IV SCH ×3 (12:15→23:57)
--- NOTE | 2018-08-24 12:50 | NUR ---
CALLED [facility] ([facility]) [phone], NOTIFIED OF FAXED ([phone]) ORDER FOR HOSPICE EVAL AND O2 SUPPLY, ALSO NOTIFIED HIM THAT [facility] (SON WITH [facility]) IS AGREEABLE WITH CONTINUING HOME HOSPICE CARE AFTER DC.
--- NOTE | 2018-08-24 13:14 | NUR ---
PATIENT COMPLAINED OF DISCOMFORT ON BED AND WISH TO SIT UP ON A CHAIR. PER FAMILY MEMBERS, THEY WANT TO TRANSFER PATIENT ON A WHEEL CHAIR AND PUSH PATIENT AROUND THE ROOM FOR AWHILE. PER FAMILY MEMBER, THEY WILL WATCH PATIENT AND BE CAUTION WITH SAFETY. TRANSFERRED PATIENT TO THE WHEELCHAIR WITH THE ASSIST FROM FAMILY MEMBER. APPLIED SEAT BELT. SAFETY MEASURE IN PLACE. TELE MONITOR ATTACHED.
--- NOTE | 2018-08-24 14:25 | NUR ---
DR MAYES IS ASSESSING PATIENT AT BEDSIDE. PATIENT IS LYING ON BED. FAMILY IS AT BEDSIDE. NO SIGNS OF DISTRESS NOTED. TELE MONITOR ATTACHED. BED IN LOW POSITION AND CALL LIGHT WITHIN REACH. SAFETY MEASURES IN PLACE.
[2018-08-24] MEDS ORDERED: AMOX-999 PO (14:50)
[2018-08-24] MEDS ORDERED: PRED20TA5 PO (14:50)
--- NOTE | 2018-08-24 15:11 | NUR ---
PATIENT IS AWAKE AND RESTING ON BED. FLACC 0. RESPIRATION EVEN AND UNLABORED ON 2LPM VIA OXIMIZER. NO SIGNS OF DISTRESS. FAMILY IS AT BEDSIDE. TELE MONITOR ATTACHED. SAFETY MEASURES IN PLACE. BED IN LOW POSITION AND CALL LIGHT WITHIN REACH.
[2018-08-24] MEDS: NACL 0.9% 1,000 ML IV SCH (15:47)
[2018-08-24 16:00] VITALS: BP 102/68
[2018-08-24] MEDS: ACETAMINOPHEN 325 MG TAB PO PRN (16:42)
--- NOTE | 2018-08-24 16:52 | NUR ---
PATIENT COMPLAINED THAT SHE FEELS PRESSURE AND PAIN AROUND HER BODY. MEDICATED WITH PRN PAIN TYLENOL, PATIENT TOLERATED WELL. DAUGHTER IS BY BEDSIDE. SAFETY MEASURES IN PLACE. TELE MONITOR ATTACHED. BED IN LOW POSITION AND CALL LIGHT WITHIN REACH.
--- NOTE | 2018-08-24 18:22 | NUR ---
PATIENT'S DAUGHTER IS FEEDING PATIENT DINNER. RESPIRATION EVEN AND UNLABORED. NO SIGNS OF DISTRESS NOTED. TELE MONITOR IN PLACE. BED IN LOW POSITION AND CALL LIGHT WITHIN REACH.
--- NOTE | 2018-08-24 19:11 | NUR ---
ENDORSED PATIENT AT BEDSIDE TO REVIEW SPECIALIST NURSE FOR CONTINUITY OF CARE. PATIENT IS RESTING ON BED AT THIS TIME. RESPIRATION EVEN AND UNLABORED ON 2LPM VIA OXIMIXER, SP02 IS AT 94%. DAUGHTER IS BY BEDSIDE. TELE MONITOR ATTACHED. BED IN LOW POSITION AND CALL LIGHT WITHIN REACH. BED ALARM ACTIVATED.
--- NOTE | 2018-08-24 19:11 | NUR ---
RECIEVED PT ,SLEEPING ON BED , NOT IN RESPIRATORY DISTRESS , O2 SAT 94% , ON O2 AT2LPM /OXIMIZER , V/S STABLE , IV SITE INTACT , DAUGTHER ON BEDSIDE , BED IN LOW POSITION , SIDERAILS UP 2X , CALL LIGHT WITHIN REACH . WILL CONTINUE TO MONITOR..
--- NOTE | 2018-08-24 19:30 | NUR ---
PT. SAID SHE WILL LEAVE TO FOR AWHILE AND COMEBACK AFTER A MINUTES , CONTACT NUMBERS PROVIDED IN CASE OF EMERGENCY .
[2018-08-24 20:00] VITALS: BP 109/62
--- NOTE | 2018-08-24 20:00 | NUR ---
V/S TAKEN -WNL. PT'S RELATIVE AT BEDSIDE , IVF SITE CHECKED -INTACT AND PATENT . PLAN OF CARE DISCUUSSED TO PT'S RELATIVE AND VERBALIZED UNDERSTANDING . CALL LIGHT WITHIN REACH , BED IN LOW POSITION ,SIDERAILS UP X2 ,WILL CONTINUE TO MONITOR
[2018-08-24] MEDS ORDERED: ACETAMINOPHEN 325 MG TAB PO PRN (22:00)
--- NOTE | 2018-08-24 22:00 | NUR ---
MADE ROUNDS PT WATCHING MOVIE WITH THE DAUGTHER AT BEDSIDE ,SCHEDULED MEDS GIVEN ORDERED. WILL CONTINUE TO MONITOR.
[2018-08-25] VITALS: BP 112/54
--- NOTE | 2018-08-25 | NUR ---
MADE ROUNDS , V/S TAKEN- WNL. IVF INFUSING WELL , CALLLIGHT WITHIN REACH ,
--- NOTE | 2018-08-25 02:00 | NUR ---
MADE ROUNDS ,PT SLEEPING , O2 SAT. 94%
[2018-08-25 04:00] VITALS: BP 109/59
--- NOTE | 2018-08-25 04:00 | NUR ---
MADE ROUNDS , V/S TAKEN , IV CANNULA PULLED OUT BY THE PT. FOR RE INSERTION OF IV NEEDLE. WILL CONTINUE TO MONITOR.
--- NOTE | 2018-08-25 05:30 | NUR ---
IV CANNULA RE INSERTED , PROCEDURE TOLERATED WELL. DIAPER WET MODERATELY SOAKED, AM CARE GIVEN C/O AIRCRAFT SALES REPRESENTATIVE. ,CALL LIGHT WITHIN REACH .WILL CONTINUE TO MONITOR.
[2018-08-25] MEDS: methylPREDNISolone SS 40 MG/ML VIAL IVP SCH ×2 (05:39→13:23)
[2018-08-25] MEDS: PIPER/TAZO 2.25GM/D5W PREMIX 50 ML IV SCH ×2 (05:40→12:23)
[2018-08-25] MEDS: PANTOPRAZOLE 40 MG TABEC PO SCH (05:40)
[2018-08-25 06:10] LABS: FOLIC ACID > 20.00 ng/mL (>3.0)
--- NOTE | 2018-08-25 07:14 | NUR ---
ENDORSED TO AM SHIFT NURSE FOR CONTINUITY OF CARE.
--- NOTE | 2018-08-25 07:14 | NUR ---
RECEIVED BEDSIDE REPORT FROM AUTO MECHANICS TEACHER NURSE FOR CONTINUITY OF CARE. PATIENT IS RESTING ON BED AT THIS TIME. AROUSABLE TO VOICE AND EYES OPEN TO VOICE. PATIENT IS AAOX1 TO NAME. FLACC 0. RESPIRATION EVEN AND UNLABORED ON OXYMIZER 2LPM, SPO2 93% AT THIS TIME. NO SIGNS OF DISTRESS NOTED. IV ON ON R HAND 22G, WARP AROUND WITH KERLIX, INTACT AND CLEAN , INFUSING PER MD ORDER. SKIN INTACT AND LOOSE. PATIENT IS BEDREST AND INCONTINENT. DISCUSSED PLAN OF CARE WITH PATIENT'S DAUGHTER AND DAUGHTER VERBALIZED UNDERSTAND. TELE MONITOR ATTACHED. SEQUENTIAL COMPRESSION SOCKS IN PLACE. BED ALARM ACTIVATED. BED IN LOW POSITION AND CALL LIGHT WITHIN REACH. INSTRUCTED PATIENT'S DAUGHTER TO USE THE CALL LIGHT FOR ANY ASSISTANCE AND SHE VERBALIZED OK.
[2018-08-25] MEDS ORDERED: METH4TAB3 PO (07:44)
[2018-08-25 08:00] VITALS: BP 99/51
[2018-08-25] MEDS ORDERED: AMOX-999 PO (08:00)
[2018-08-25 08:03] LABS: HEMATOCRIT 30.9 % (36-48); HEMOGLOBIN 9.4 g/dL (12.0-16.0); LYMPHOCYTES # (AUTO) 0.4 K/uL (2.5-16.5); LYMPHOCYTES % (AUTO) 3.8 % (20.5-51.1); MEAN CORPUSCULAR HEMOGLOBIN 21 pg (27-31); MEAN CORPUSCULAR HGB CONC 30 g/dL (33-37); MEAN CORPUSCULAR VOLUME 67.5 fL (80-94); MONOCYTES # (AUTO) 0.1 K/uL (0.8-1.0); MONOCYTES % (AUTO) 1.1 % (1.7-9.3); NEUTROPHILS # (AUTO) 10.7 K/uL (1.8-7.7); NEUTROPHILS % (AUTO) 95.1 % (42.2-75.2); PLATELET COUNT (AUTO) 341 K/uL (140-450); RED BLOOD CELL COUNT(AUTO) 4.58 MIL/uL (4.20-5.40); WHITE BLOOD COUNT (AUTO) 11.3 K/uL (4.8-10.8)
[2018-08-25] MEDS ORDERED: INUL1CTB PO (08:05)
[2018-08-25] MEDS ORDERED: SYN.05 PO (08:07)
[2018-08-25 08:17] LABS: PHOSPHORUS 2.9 mg/dL (2.5-4.9)
[2018-08-25 09:00] LABS: CARBON DIOXIDE 30.7 mmol/L (21-32); CHLORIDE 99 mmol/L (98-107); CREATININE 1.3 mg/dL (0.6-1.3); GLUCOSE 175 mg/dL (74-106); SODIUM SERUM 142 mmol/L (136-145); UREA NITROGEN, BLOOD 37 mg/dL (7-18)
[2018-08-25 09:04] LABS: POTASSIUM 2.7 mmol/L (3.5-5.1)
--- NOTE | 2018-08-25 09:10 | NUR ---
RECEIVED CRITICAL LAB FOR POTASSIUM 2.7. REPORTED TO DR BRUSH AND DR BRUSH ORDERED K-DUR AND POTASSIUM CHLORIDE VIA IV.
[2018-08-25] MEDS: SODIUM FERRIC GLUCONATE 125 MG in NACL 0.9% 100 ML IV SCH (09:27)
[2018-08-25] MEDS: ATORVASTATIN 20 MG TAB PO SCH (09:28)
[2018-08-25] MEDS: APIXABAN 2.5 MG TAB PO SCH (09:29)
[2018-08-25] MEDS: FERROUS SULFATE 325 MG TABEC PO SCH (09:30)
[2018-08-25] MEDS: guaiFENesin 600 MG TABER PO SCH (09:30)
[2018-08-25] MEDS: ASPIRIN 81 MG TAB.CHEW PO SCH (09:30)
[2018-08-25] MEDS: CARVEDILOL 3.125 MG TAB PO SCH (09:31)
[2018-08-25] MEDS: FUROSEMIDE 40 MG/4 ML VIAL IVP SCH (09:31)
--- NOTE | 2018-08-25 09:35 | NUR ---
ADMINISTERED MEDS PER MD ORDER, CRUSHED AND MIXED INTO APPLE SAUCE, PATIENT TOLERATED WELL. HOLD CARVEDILOL DUE TO LOW PULSE. MEDICATION EDUCATION PROVIDED TO DAVID COPPOLA AT BEDSIDE. RESPIRATION EVEN AND UNLABORED. TELE MONITOR IN PLACE. SAFETY MEASURES IN PLACE. INSTRUCTED DAVID COPPOLA TO USE THE CALL LIGHT FOR ANY ASSISTANCE AND ABDON WAS AWARE.
[2018-08-25] MEDS ORDERED: POTASSIUM CHLORIDE 10 MEQ TABER PO SCH (10:00)
[2018-08-25] MEDS ORDERED: POTASSIUM CHLORIDE 40 MEQ, LIDOCAINE MPF 1% - 5 mL VIAL 25 MG in NACL 0.9% 250 ML IV SCH (10:00)
[2018-08-25] MEDS: ALBUTEROL SULFATE/IPRATROPIU 3 ML SOL IH PRN (10:02)
--- NOTE | 2018-08-25 11:25 | NUR ---
PATIENT IS AWAKE ON BED. RESPIRATION EVEN AND UNLABORED ON 2LPM VIA OXIMIZER. SPO2 IS 96%. NO SIGNS OF DISTRESS NOTED. DAUGHTER ABDON IS BY BEDSIDE. TELE MONITOR IN PLACE. SAFETY MEASURES IN PLACE. BED IN LOW POSITION AND CALL LIGHT WITHIN REACH.
[2018-08-25 12:00] VITALS: BP 128/79
--- NOTE | 2018-08-25 13:21 | NUR ---
SPOKE TO REDD DIETRICH REGARDING PLAN OF PATIENT DC TODAY. SHE SAID SHE WILL CALL ME AFTER SHE TALK TO HER ADJUNCT SOCIOLOGY PROFESSOR. WILL CONTINUE TO FOLLOW UP.
--- NOTE | 2018-08-25 13:25 | NUR ---
ADMINISTERED MED PER MD ORDER, PATIENT TOLERATED WELL. PATIENT IS RESTING ON BED WITH DAUGHTER ABDON ON BEDSIDE. PATIENT IS ON 2LPM VIA OXIMIZER, SPO2 IS 95%. NO SIGNS OF DISTRESS. TELE MONITOR ATTACHED. SAFETY MEASURES IN PLACE.
[2018-08-25 15:05] LABS: ANION GAP 11.8 (8-16); CHLORIDE 101 mmol/L (98-107); CREATININE 1.2 mg/dL (0.6-1.3); GLUCOSE 196 mg/dL (74-106); POTASSIUM 3.8 mmol/L (3.5-5.1); SODIUM SERUM 142 mmol/L (136-145); UREA NITROGEN, BLOOD 36 mg/dL (7-18)
--- NOTE | 2018-08-25 15:15 | NUR ---
PER TIMOTHY FROM [facility], THEIR TRANSPORTATION WILL CORRECTIONAL MEDICINE PHYSICIAN PATIENT AT 1600. INFORMED PATIENT'S DAUGHTER HAKEEM WAS AWARE. DR BRUSH WAS AWARE THAT PATIENT WILL BE CORRECTIONAL MEDICINE PHYSICIAN AT 1600.
--- NOTE | 2018-08-25 15:24 | NUR ---
PATIENT COMPLAINED OF 3/10 PAIN, ADMINISTERED PRN PAIN MED MIXED IN APPLE SAUCE, PATIENT TOLERATED WELL. DAUGHTER ABDON IS BY BEDSIDE. NO SIGNS OF DISTRESS NOTED. SAFETY MEASURES IN PLACE.
[2018-08-25] MEDS: NACL 0.9% 1,000 ML IV SCH (15:55)
[2018-08-25 16:00] VITALS: BP 114/57
--- NOTE | 2018-08-25 16:26 | NUR ---
ADMINISTERED PNA VACCINE, PATIENT TOLERATED WELL. NO SIGNS OF DISTRESS NOTED. VACCINE EDUCATION PROVIDED TO DAVID COPPOLA AT BEDSIDE. DAVID COPPOLA VERBALIZED UNDERSTANDING. DAVID COPPOLA AGREED AND ACKNOWLEDGED IT.
[2018-08-25] MEDS ORDERED: PNEUMOCOCCAL VACCINE 23 MCG/0.5 ML VIAL IMVAC SCH (16:30)
--- NOTE | 2018-08-25 16:35 | NUR ---
DISCHARGE INSTRUCTION PROVIDED TO PATIENT AND PATIENT'S DAUGHTER AT BEDSIDE. PRINTED DISCHARGE PACKET PROVIDED TO PATIENT'S ABDON. EDUCATED PATIENT AND DAUGHTER ABDON ON MEDICATION REGIMEN, SIDE EFFECT,AND DIET REGIMEN. ANSWERED ALL PATIENT'S DAUGHTER ABDON'S QUESTIONS AND ABDON VERBALIZED UNDERSTANDING. REMOVED ALL ARM BANDS AND TELE MONITOR. D/C IV AND CANNULA INTACT. ABDON CHECKED ALL CABINETS AND TOOK ALL PATIENT'S BELONGINGS. PATIENT IS GOING TO DISCHARGE AT THIS TIME ACCOMPANIED BY DAUGHTER ABDON. PATIENT IS IN STABLE CONDITION.
[2018-08-26 13:30] LABS: FERRITIN 13 ng/mL (15 - 150)
== END 2018-08-25 16:58 | disposition hospice, home (50) | DRG 140 ==
LOC: MED 11:46 → MTU 15:47
PROVIDERS: ADMIT General Practice; ATTEND General Practice
PROC: 5A09357 Assistance with Respiratory Ventilation, Less than 24 Consecutive Hours, Continuous Positive Airway Pressure (ICD-10-PCS; 2018-08-22)
PROC: 3E0234Z Introduction of Serum, Toxoid and Vaccine into Muscle, Percutaneous Approach (ICD-10-PCS; principal; 2018-08-25)
DX: J44.1 Chronic obstructive pulmonary disease with (acute) exacerbation (principal); J96.21 Acute and chronic respiratory failure with hypoxia; I50.43 Acute on chronic combined systolic (congestive) and diastolic (congestive) heart failure; I27.20 Pulmonary hypertension, unspecified; I48.91 Unspecified atrial fibrillation; R65.10 Systemic inflammatory response syndrome (SIRS) of non-infectious origin without acute organ dysfunction; E72.20 Disorder of urea cycle metabolism, unspecified; I11.0 Hypertensive heart disease with heart failure; E44.1 Mild protein-calorie malnutrition; I25.10 Atherosclerotic heart disease of native coronary artery without angina pectoris; M81.0 Age-related osteoporosis without current pathological fracture; D50.9 Iron deficiency anemia, unspecified; E03.9 Hypothyroidism, unspecified; E87.6 Hypokalemia; Z51.5 Encounter for palliative care; Z68.31 Body mass index [BMI] 31.0-31.9, adult; Z74.01 Bed confinement status; Z95.5 Presence of coronary angioplasty implant and graft; Z23 Encounter for immunization; Z79.899 Other long term (current) drug therapy; Z79.82 Long term (current) use of aspirin; I25.2 Old myocardial infarction; Z83.3 Family history of diabetes mellitus; Z87.891 Personal history of nicotine dependence
CPT/HCPCS: 36415; 71045; 80048; 80053; 82140; 82150; 82607; 82728; 82746; 82948; 83036; 83540; 83605; 83690; 83735; 83880; 84100; 84436; 84443; 84484; 85025; 85045; 85610; 85730; 87040; 87081; 90732; 93005; 94640; 96374; 99285; J1940; J2001; J2543; J2916; J2920; J2930; J3480; J7030; J7613; J7620; Q0092